=== PATIENT | female | born 1955 | race Caucasian/White ===

== ENCOUNTER → 2016-12-22 | Outpatient (REF) | payer OTHER | LOC: M SMT 13:09 | PROVIDERS: ATTEND Nurse Practitioner Women's Health | DX: Z87.440 Personal history of urinary (tract) infections (principal) ==

== ENCOUNTER → 2017-03-09 | Outpatient (CLI) | payer BC ==
--- NOTE | 2017-03-09 15:14 | REPMRS ---
Patient History The patient states she has not had a clinical breast exam in over a year. Patient is postmenopausal. Family history of colorectal cancer in mother at age 50 or over. Benign stereotactic core biopsy of the left breast, 1993. Digital Woman Screen Mammo: March 09, 2017 - Exam #: [id number] Bilateral CC and MLO view(s) were taken. Technologist: Claire Concepcion, Technologist FINDINGS: There are scattered fibroglandular densities. There has been no change in the appearance of the mammogram from the prior studies. There is a mild amount of residual fibroglandular tissue which is fairly symmetric. There is no interval development of dominant mass, architectural distortion, or clustered microcalcification suggestive of malignancy. ASSESSMENT: BI-RADS/ACR category 1 mammogram. Negative. Recommendation Routine screening mammogram in 1 year (for women over age 40). This mammogram was interpreted with the aid of an FDA-approved computer-aided dectection system. Electronically Signed By: Yusuf Retana MD 03/09/17 [id number]
== END ==
LOC: M WHC 13:46
PROVIDERS: ATTEND Family Medicine
DX: Z12.39 Encounter for other screening for malignant neoplasm of breast (principal)

== ENCOUNTER → 2017-03-10 | Outpatient (REF) | payer BC | LOC: M LAB REF 13:52 | PROVIDERS: ATTEND Obstetrics & Gynecology | DX: Z12.4 Encounter for screening for malignant neoplasm of cervix (principal) ==

== ENCOUNTER → 2017-06-22 | Outpatient (REF) | payer OTHER | LOC: M SMT 13:10 | PROVIDERS: ATTEND Nurse Practitioner Women's Health | DX: R33.9 Retention of urine, unspecified (principal) ==

== ENCOUNTER → 2017-11-16 | Outpatient (REF) | payer OTHER | LOC: M SFHCLERA 09:15 | PROVIDERS: ATTEND Family Medicine | DX: R73.02 Impaired glucose tolerance (oral) (principal) ==

== ENCOUNTER → 2017-11-16 | Outpatient (CLI) | payer BC, OTHER ==
--- NOTE | 2017-11-16 10:29 | REP ---
RIGHT KNEE SERIES: Five views right knee performed. There is no acute fracture or dislocation. There is mild joint space narrowing diffusely with subchondral sclerosis and spurring. I do not see a significant joint effusion. IMPRESSION: Diffuse degenerative changes. No fracture or dislocation. Signed by Yusuf Retana MD 11/16/2017 05:55 P
== END ==
LOC: M LRY 09:51
PROVIDERS: ATTEND Family Medicine
DX: M17.11 Unilateral primary osteoarthritis, right knee (principal)

== ENCOUNTER → 2017-12-08 | Outpatient (REF) | payer OTHER ==
[2017-12-08 13:58] LABS: APPEARANCE, URINE CLEAR (CLEAR); BACTERIA, URINE AUTO NEGATIVE (NEGATIVE); BILIRUBIN, URINE AUTO NEGATIVE (NEGATIVE); BLOOD, URINE BLOOD NEGATIVE (NEGATIVE); COLOR, URINE YELLOW (YELLOW); GLUCOSE, URINE (UA) AUTO NEGATIVE (NEGATIVE); KETONE, URINE AUTO NEGATIVE (NEGATIVE); LEUKOCYTE ESTERASE, URINE AUTO NEGATIVE (NEGATIVE); NITRITE, URINE AUTO NEGATIVE (NEGATIVE); PROTEIN, URINE AUTO NEGATIVE (NEGATIVE); RBC, URINE AUTO 0 /HPF (0-3); SQUAMOUS EPITHELIAL CELL UR AU 0 /HPF (0-6); UROBILINOGEN, URINE AUTO 0.2 mg/dL (0.0-2.0); WBC, URINE AUTO 1 /HPF (0-3)
== END ==
LOC: M SMT 13:40
DX: R33.9 Retention of urine, unspecified (principal)

== ENCOUNTER → 2018-03-16 | Outpatient (CLI) | payer BC | LOC: M WHC 11:17 | DX: Z12.31 Encounter for screening mammogram for malignant neoplasm of breast (principal); Z78.0 Asymptomatic menopausal state ==

== ENCOUNTER 2018-07-22 07:30 | Day surgery (SDC) | payer BC, OTHER ==
[~2018-07-22 07:30] MED LIST: LIDOCAINE 2% INJ 100 MG/5 ML SDV (FOR ANES.) As Ordered; PROPOFOL 200 MG/20 ML VIAL As Ordered
[2018-07-22] MEDS: NS 1,000 ML IV (08:01)
== END 2018-07-22 09:12 | disposition home or self-care (01) ==
LOC: M OPP 07:30
DX: Z12.11 Encounter for screening for malignant neoplasm of colon (principal); Z80.0 Family history of malignant neoplasm of digestive organs; K59.00 Constipation, unspecified; M19.90 Unspecified osteoarthritis, unspecified site; F41.9 Anxiety disorder, unspecified; Z78.0 Asymptomatic menopausal state; R33.9 Retention of urine, unspecified; Z80.42 Family history of malignant neoplasm of prostate; Z79.899 Other long term (current) drug therapy
CPT/HCPCS: G0105

== ENCOUNTER → 2018-12-10 | Outpatient (CLI) | payer BC, OTHER ==
[~2018-12-10] MED LIST changes: +BUSP5TA PO; +CALC1TAB11 PO; -LIDOCAINE 2% INJ 100 MG/5 ML SDV (FOR ANES.) As Ordered; +ONETAB33 PO; -PROPOFOL 200 MG/20 ML VIAL As Ordered
--- NOTE | 2018-12-10 13:38 | REP ---
RENAL ULTRASOUND COMPLETE: 12/10/2018 COMPARISON: 03/31/2016. CLINICAL HISTORY: Incomplete bladder emptying. FINDINGS: The right kidney measures 10.2 x 5.1 x 4.2 cm. It has normal cortical thickness and echogenicity. There is no hydronephrosis or hydroureter. I see no solid mass or cyst. Echogenic focus overlies upper pole jeffrey about 8 x 7 mm and may be a small stone. The left kidney is 11.5 x 6.6 x 4.8 centimeters with normal cortical echogenicity and thickness. There is no hydronephrosis or hydroureter and no stone, cyst or solid mass. Some of its margins are obscured by gas shadowing from unfavorable sonographic window. The bladder volume calculated pre-void measurement of 14.2 x 11.4 x 11.5 cm 969 mL . Postvoid 10.1 x 9.8 x 10.6 cm calculates at 541 mL. This is a 56% residual. In addition there is focal abnormal thickening of the anterior bladder wall that may reflect a mass 3.9 x 2.8 x 1.6 cm. This is new since the previous study in 2016. IMPRESSION: 1. A 3.9 x 2.8 x 1.6 cm irregular thickened anterior bladder wall suggesting a soft tissue mass in that bladder wall. Further evaluation is needed. Malignancy is not excluded. 2. Bladder volume 969 mL pre-void; 541 mL postvoid, a 56% residual. 3. No hydronephrosis, hydroureter or ureteral stones. There is 8 x 7 mm echogenic focus suggesting a stone in a jeffrey of the right kidney without hydronephrosis. No solid or cystic mass. Normal cortical echogenicity and thickness. Electronically Signed by Pio Albarado MD 12/10/2018 04:59 P
== END ==
LOC: M SMT 09:54
PROVIDERS: ATTEND Nurse Practitioner Women's Health
DX: R33.9 Retention of urine, unspecified (principal)

== ENCOUNTER → 2019-01-04 | Outpatient (REF) | payer OTHER ==
[2019-01-04 18:28] LABS: APPEARANCE, URINE HAZY (CLEAR); BACTERIA, URINE AUTO 1+ (NEGATIVE); BILIRUBIN, URINE AUTO NEGATIVE (NEGATIVE); BLOOD, URINE BLOOD NEGATIVE (NEGATIVE); COLOR, URINE YELLOW (YELLOW); GLUCOSE, URINE (UA) AUTO NEGATIVE (NEGATIVE); KETONE, URINE AUTO NEGATIVE (NEGATIVE); LEUKOCYTE ESTERASE, URINE AUTO 3+ (NEGATIVE); MUCUS, URINE SMALL (NEGATIVE); NITRITE, URINE AUTO NEGATIVE (NEGATIVE); PROTEIN, URINE AUTO 1+ mg/dL (NEGATIVE); RBC, URINE AUTO 9 /HPF (0-3); SPECIFIC GRAVITY URINE AUTO 1.011 (1.002-1.035); SQUAMOUS EPITHELIAL CELL UR AU 0 /HPF (0-6); UROBILINOGEN, URINE AUTO 0.2 mg/dL (0.0-2.0); WBC, URINE AUTO 176 /HPF (0-3)
== END ==
LOC: M SMT 17:15
PROVIDERS: ATTEND Urology
DX: D49.4 Neoplasm of unspecified behavior of bladder (principal)

== ENCOUNTER 2019-01-12 07:15 | Observation (INO) | payer BC, OTHER ==
[~2019-01-12] VITALS: Ht 157.5 cm; Wt 82.1 kg
[2019-01-12] VITALS (8 sets, daily range): BP systolic 74–132; BP diastolic 37–74
[~2019-01-12 07:15] MED LIST changes: +LIDOCAINE 1% MDV 20ML VIAL SQ PRN; +LR 1,000 ML IV ONE
[2019-01-12] MEDS ORDERED: ONDANSETRON 4MG/2ML VIAL (J2405) As Ordered ONE (08:06)
[2019-01-12] MEDS ORDERED: dexameTHASONE 4 MG/ML 1ML VIAL (J1100) As Ordered ONE (08:06)
[2019-01-12] MEDS ORDERED: PROPOFOL 200 MG/20 ML VIAL As Ordered ONE (08:06)
[2019-01-12] MEDS ORDERED: LIDOCAINE 2% INJ 100 MG/5 ML SDV (FOR ANES.) As Ordered ONE (08:06)
[2019-01-12] MEDS ORDERED: fentaNYL 100 MCG/2 ML INJECTION (J3010) As Ordered ONE ×3 (08:08→11:03)
[2019-01-12] MEDS ORDERED: MIDAZOLAM INJ 2 MG/2 ML VIAL (J2250) As Ordered ONE (08:08)
[2019-01-12] MEDS ORDERED: LEVO500T3 PO (08:22)
[2019-01-12] MEDS ORDERED: SUGAMMADEX SODIUM 500 MG/5 ML VIAL (BRIDION) As Ordered ONE (09:14)
[2019-01-12] MEDS ORDERED: ROCURONIUM BROMIDE 50 MG/5 ML VIAL As Ordered ONE ×2 (09:16→09:49)
[2019-01-12] MEDS: fentaNYL 100 MCG/2 ML INJECTION (J3010) IV PRN ×4 (11:08→12:00)
[2019-01-12] MEDS ORDERED: PERCOCET 5MG/325MG TAB As Ordered ONE (11:14)
[2019-01-12] MEDS ORDERED: ACETAMINOPHEN TAB 650MG DOSE (2X325MG) PO PRN (11:15)
[2019-01-12] MEDS ORDERED: PERCOCET 5MG/325MG TAB PO PRN (11:30)
[2019-01-12] MEDS: oxyBUTYnin 5 MG TAB PO PRN ×2 (11:37→21:22)
[2019-01-12 11:56] LABS: HEMATOCRIT 33.5 % (36.0-47.0); MEAN CORPUSCULAR HEMOGLOBIN 30.8 pg (27.0-33.0); MEAN CORPUSCULAR HGB CONC 32.8 g/dl (32.0-36.5); MEAN CORPUSCULAR VOLUME 93.8 fl (80.0-96.0); PLATELET COUNT, AUTOMATED 235 10^3/uL (150-450); RED BLOOD COUNT 3.57 10^6/uL (4.00-5.40); WHITE BLOOD COUNT 9.3 10^3/uL (4.0-10.0)
[2019-01-12 12:19] LABS: BLOOD UREA NITROGEN 12 MG/DL (7-18); CALCIUM LEVEL 8.5 MG/DL (8.8-10.2); CARBON DIOXIDE LEVEL 27 MEQ/L (21-32); CHLORIDE LEVEL 103 MEQ/L (98-107); CREATININE FOR GFR 0.71 MG/DL (0.55-1.30); GLOMERULAR FILTRATION RATE > 60.0 (>45); GLUCOSE, FASTING 124 MG/DL (70-100); SODIUM LEVEL 138 MEQ/L (136-145)
[2019-01-12] MEDS ORDERED: NS 1,000 ML IV SCH (16:30)
[2019-01-12] MEDS: DOCUSATE SODIUM 100 MG CAP PO SCH (21:22)
[2019-01-12] MEDS: busPIRone 5 MG TAB PO SCH (21:22)
[2019-01-13] VITALS: BP 116/68
[2019-01-13] MEDS: ONDANSETRON 4MG/2ML VIAL (J2405) IV PRN ×2 (02:38→08:29)
[2019-01-13 04:00] VITALS: BP 106/58
[2019-01-13 06:52] LABS: HEMATOCRIT 28.2 % (36.0-47.0); HEMOGLOBIN 9.5 g/dl (12.0-15.5); MEAN CORPUSCULAR HEMOGLOBIN 31.4 pg (27.0-33.0); MEAN CORPUSCULAR HGB CONC 33.7 g/dl (32.0-36.5); MEAN CORPUSCULAR VOLUME 93.1 fl (80.0-96.0); PLATELET COUNT, AUTOMATED 217 10^3/uL (150-450); RED BLOOD COUNT 3.03 10^6/uL (4.00-5.40); WHITE BLOOD COUNT 13.7 10^3/uL (4.0-10.0)
[2019-01-13] MEDS: LevoFLOXacin 500 MG TABLET PO SCH (07:06)
[2019-01-13 07:20] LABS: CALCIUM LEVEL 8.3 MG/DL (8.8-10.2); CREATININE FOR GFR 1.07 MG/DL (0.55-1.30); POTASSIUM SERUM 4.2 MEQ/L (3.5-5.1)
[2019-01-13 07:30] VITALS: BP 110/57
--- NOTE | 2019-01-13 08:16 | IPNPDOC ---
Assessment/Plan Date Seen The patient was seen on 01/13/19. Patient Summary This is a 63 y/o F POD1 s/p cysto and TURBT, found to have a small (1-2mm) bladder perforation intraop. She currently has minimal abd pain. Her catheter has been draining fine. Her urine is not clear yet. Nursing has milked the catheter tubing a few times o/n to remove clots. Hb this morning is down to 9.5, likely partially due to hemodilution. Cr is up a little to 1. Vitals are stable. Plan/VTE VTE Prophylaxis Ordered?: Yes VTE Exclusion Mechanical Proph: N/A:VTE Prophy Ordered Plan/Urinary Catheter Urinary Catheter: Other Catheter: (catheter will need to stay in for 2 wks for the bladder to heal) Plan - d/c IVF - strict I/Os - oxybutynin prn bladder spasms - encourage PO fluids - SCDs - ambulate - regular diet - potential d/c home later today vs tomorrow w/ the catheter Subjective Review oF Systems Chief Complaint The patient is a 63-year-old female admitted with a reason for visit of Bladder Mass. Events since Last Encounter Patient had bouts of abdominal pain o/n, which seemed to improve w/ oxybutynin. No n/v a this time. No SOB or chest pain. No f/c/ns. Objective Physical Examination General Exam: Alert, Cooperative, No Acute Distress ABDOMEN EXAM: Soft, Tenderness (mild), Other (nondistended) Skin Exam: Nl turgor and temperature Neuro Exam: Normal Speech Psych Exam: Mental status NL, Mood NL Other physical findings catheter in place, draining brownish red urine w/ no clots Vital Signs/I&O Vital Signs Date Time Temp Pulse Resp B/P (MAP) Pulse Ox O2 Delivery O2 Flow Rate FiO2 01/13/19 04:00 98.8 88 18 106/58 (74) 96 01/12/19 12:00 Nasal Cannula 2 I&O- Last 24 Hours up to 6 AM 01/13/19 06:00 Intake Total 2015 ml Output Total 1260 ml Balance 755 ml Laboratory Data Labs 24H Laboratory Tests 2 01/12/19 11:19: Nucleated Red Blood Cells % (auto) 0.0, Anion Gap 8, Glomerular Filtration Rate > 60.0, Blood Urea Nitrogen 12, Creatinine 0.71, Sodium Level 138, Potassium Level 4.0, Chloride Level 103, Carbon Dioxide Level 27, Calcium Level 8.5L 01/13/19 06:24: Nucleated Red Blood Cells % (auto) 0.0, Anion Gap 4L, Glomerular Filtration Rate 55.0, Blood Urea Nitrogen 16, Creatinine 1.07#, Sodium Level 137, Potassium Level 4.2, Chloride Level 103, Carbon Dioxide Level 30, Calcium Level 8.3L CBC/BMP Laboratory Tests 01/12/19 11:19 Red Blood Count 3.57 L, Mean Corpuscular Volume 93.8, Mean Corpuscular Hemoglobin 30.8, Mean Corpuscular Hemoglobin Concent 32.8, Red Cell Distribution Width 12.3, Calcium Level 8.5 L 01/13/19 06:24 Red Blood Count 3.03 L, Mean Corpuscular Volume 93.1, Mean Corpuscular Hemoglobin 31.4, Mean Corpuscular Hemoglobin Concent 33.7, Red Cell Distribution Width 12.6, Calcium Level 8.3 L KELLY MENDOZA MD Jan 13, 2019 08:16
[2019-01-13] MEDS: DOCUSATE SODIUM 100 MG CAP PO SCH ×2 (08:29→21:37)
[2019-01-13] MEDS: busPIRone 5 MG TAB PO SCH ×2 (08:29→21:37)
[2019-01-13 12:00] VITALS: BP 118/68
[2019-01-13 13:35] LABS: HEMATOCRIT 30.3 % (36.0-47.0); HEMOGLOBIN 10.1 g/dl (12.0-15.5); MEAN CORPUSCULAR HEMOGLOBIN 31.2 pg (27.0-33.0); MEAN CORPUSCULAR HGB CONC 33.3 g/dl (32.0-36.5); MEAN CORPUSCULAR VOLUME 93.5 fl (80.0-96.0); PLATELET COUNT, AUTOMATED 237 10^3/uL (150-450); RED BLOOD COUNT 3.24 10^6/uL (4.00-5.40); WHITE BLOOD COUNT 13.2 10^3/uL (4.0-10.0)
[2019-01-13 14:00] LABS: BLOOD UREA NITROGEN 13 MG/DL (7-18); CALCIUM LEVEL 8.9 MG/DL (8.8-10.2); CARBON DIOXIDE LEVEL 29 MEQ/L (21-32); CHLORIDE LEVEL 102 MEQ/L (98-107); CREATININE FOR GFR 0.98 MG/DL (0.55-1.30); GLOMERULAR FILTRATION RATE > 60.0 (>45); GLUCOSE, FASTING 141 MG/DL (70-100); SODIUM LEVEL 138 MEQ/L (136-145)
[2019-01-13 16:00] VITALS: BP 116/63
[2019-01-13 20:00] VITALS: BP 130/70
[2019-01-14] VITALS (9 sets, daily range): BP systolic 106–136; BP diastolic 57–71
[2019-01-14] MEDS: oxyBUTYnin 5 MG TAB PO PRN ×2 (04:36→21:01)
[2019-01-14] MEDS: LevoFLOXacin 500 MG TABLET PO SCH (06:04)
[2019-01-14 06:06] LABS: HEMATOCRIT 27.7 % (36.0-47.0); HEMOGLOBIN 9.2 g/dl (12.0-15.5); MEAN CORPUSCULAR HEMOGLOBIN 31.5 pg (27.0-33.0); MEAN CORPUSCULAR HGB CONC 33.2 g/dl (32.0-36.5); MEAN CORPUSCULAR VOLUME 94.9 fl (80.0-96.0); PLATELET COUNT, AUTOMATED 201 10^3/uL (150-450); RED BLOOD COUNT 2.92 10^6/uL (4.00-5.40); WHITE BLOOD COUNT 9.1 10^3/uL (4.0-10.0)
[2019-01-14 06:40] LABS: BLOOD UREA NITROGEN 12 MG/DL (7-18); CALCIUM LEVEL 8.6 MG/DL (8.8-10.2); CARBON DIOXIDE LEVEL 30 MEQ/L (21-32); CHLORIDE LEVEL 103 MEQ/L (98-107); CREATININE FOR GFR 0.65 MG/DL (0.55-1.30); GLOMERULAR FILTRATION RATE > 60.0 (>45); GLUCOSE, FASTING 112 MG/DL (70-100); POTASSIUM SERUM 3.7 MEQ/L (3.5-5.1); SODIUM LEVEL 140 MEQ/L (136-145)
[2019-01-14] MEDS ORDERED: NS 1,000 ML IV SCH ×2 (08:45)
[2019-01-14] MEDS: DOCUSATE SODIUM 100 MG CAP PO SCH ×2 (09:04→21:00)
[2019-01-14] MEDS: busPIRone 5 MG TAB PO SCH ×2 (09:04→21:00)
--- NOTE | 2019-01-14 14:02 | RO ---
DATE OF PROCEDURE: 01/12/2019 PREPROCEDURE DIAGNOSIS: Bladder tumor. POSTPROCEDURE DIAGNOSIS: Bladder tumor. PROCEDURE: Cystoscopy, transurethral resection of bladder tumor (greater than 5 cm), examination under anesthesia. SURGEON: Dom Lind MD CLINICAL LABORATORY MEDICAL DIRECTOR: None. ANESTHESIA: General. OPERATIVE INDICATIONS: This is a 63-year-old female who on recent office cystoscopy was found to have a very large bladder tumor occupying the anterior and posterior wall. She was brought to the operating room today for the above listed procedure. DESCRIPTION OF PROCEDURE: The patient was brought to the operating room where general anesthesia was induced. Prophylactic antibiotics were infused. She was then placed in the dorsal lithotomy position and prepped and draped in the usual sterile fashion. At this point, a bimanual vaginal examination under anesthesia was performed. It was negative for palpable bladder masses. The bladder was freely mobile. At this point, a resectoscope was inserted through the urethral meatus and advanced into the bladder using the visual obturator. The bladder was then thoroughly examined. Of note, there was a very large tumor occupying the anterior and posterior wall, as well as two to three small satellite tumors adjacent to it. This tumor did appear to be at least 6 to 7 cm in size. At this point, resectoscope was utilized to resect all visible tumors all the way down to the muscle layer. Of note, this took a large amount of time given the size of the tumor. Once satisfied that all the tumor had been resected, the area of resection was cauterized until we had excellent hemostasis. Of note, while doing this, there did appear to be an approximately 2 mm bladder perforation on the posterior wall. The patient's abdomen appeared to be soft and was not accumulated with fluid. All the specimens were removed from the bladder using an [employer] evacuator. Once satisfied all the specimens were removed, an #18 [place] Newton catheter was inserted into the bladder and the balloon was filled with 10 mm of sterile water. The fluid drained clear at the end of the procedure. The catheter was connected to gravity drainage. This marked the conclusion of the procedure. The patient was then taken out of dorsal lithotomy position, awakened from anesthesia and transported to the recovery room in stable condition. Estimated blood loss 10 mL. Complications: Inadvertant small bladder perforation on the posterior wall, approximately 2 mm in size. Specimens: Bladder tumors. PLAN: We will check laboratories in the postanesthesia care unit (PACU). We will keep the patient overnight for observation. If there are any concerns that the patient is not healing well the perforation, we will get imaging and potentially put a drain in. Otherwise, the plan will be to leave the patient's catheter in for 2 weeks to allow the bladder to heal and then get a cystogram prior to removing the catheter. MUNIR
--- NOTE | 2019-01-14 17:03 | IPNPDOC ---
Assessment/Plan Date Seen The patient was seen on 01/14/19. 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 Her catheter clotted off again this morning and was manually irrigated w/ 1.5L of normal saline w/ return of several clots. When examined again at noon, the urine had turned dark brownish red again. I discussed taking her back for clot evacuation and possible fulguration today. She is agreeable w/ this. Plan/VTE VTE Prophylaxis Ordered?: Yes VTE Exclusion Mechanical Proph: N/A:VTE Prophy Ordered Plan/Urinary Catheter Urinary Catheter: Other Catheter: (catheter will need to stay in for 2 wks for the bladder to heal) Plan - catheter to gravity drainage - pathology results as well as treatment recommendations down the line (radical cystectomy w/ neoadjuvant chemotherapy) discussed in detail - plan OR today for cystoscopy, clot evacuation, fulguration - NPO until OR Subjective Review oF Systems Chief Complaint The patient is a 63-year-old female admitted with a reason for visit of Bladder Mass. Events since Last Encounter The patient noted increased suprapubic pain again this morning. The catheter drained o/n, but the urine is dark brownish red again. The patient denies n/v. Denies f/c. Objective Physical Examination General Exam: Alert, Cooperative, No Acute Distress Chest Exam: Clear to auscultation Heart Exam: Positive: Regular Rhythm ABDOMEN EXAM: Soft, Tenderness (mild), Other (nondistended) Skin Exam: Nl turgor and temperature Neuro Exam: Normal Speech Psych Exam: Mental status NL, Mood NL Other physical findings catheter draining dark brownish red urine Vital Signs/I&O Vital Signs Date Time Temp Pulse Resp B/P (MAP) Pulse Ox O2 Delivery O2 Flow Rate FiO2 01/14/19 12:00 98.7 103 19 106/57 (73) 95 01/12/19 12:00 Nasal Cannula 2 I&O- Last 24 Hours up to 6 AM 01/14/19 06:00 Intake Total 520 ml Output Total 1150 ml Balance -630 ml Laboratory Data Labs 24H Laboratory Tests 2 01/14/19 05:41: Nucleated Red Blood Cells % (auto) 0.0, Anion Gap 7L, Glomerular Filtration Rate > 60.0, Blood Urea Nitrogen 12, Creatinine 0.65, Sodium Level 140, Potassium Level 3.7, Chloride Level 103, Carbon Dioxide Level 30, Calcium Level 8.6L CBC/BMP Laboratory Tests 01/14/19 05:41 Red Blood Count 2.92 L, Mean Corpuscular Volume 94.9, Mean Corpuscular Hemoglobin 31.5, Mean Corpuscular Hemoglobin Concent 33.2, Red Cell Distribution Width 12.9, Calcium Level 8.6 L KELLY MENDOZA MD Jan 14, 2019 17:03
[2019-01-14] MEDS ORDERED: ceFAZolin 2 GM/D5W 50 ML IV BAG (J0690 PER 500MG) As Ordered ONE (17:41)
[2019-01-14] MEDS ORDERED: ONDANSETRON 4MG/2ML VIAL (J2405) As Ordered ONE (18:14)
[2019-01-14] MEDS ORDERED: LIDOCAINE 2% INJ 100 MG/5 ML SDV (FOR ANES.) As Ordered ONE (18:14)
[2019-01-14] MEDS ORDERED: PROPOFOL 200 MG/20 ML VIAL As Ordered ONE (18:14)
[2019-01-14] MEDS ORDERED: dexameTHASONE 4 MG/ML 1ML VIAL (J1100) As Ordered ONE (18:14)
[2019-01-14] MEDS ORDERED: MIDAZOLAM INJ 2 MG/2 ML VIAL (J2250) As Ordered ONE (18:14)
[2019-01-14] MEDS ORDERED: fentaNYL 100 MCG/2 ML INJECTION (J3010) As Ordered ONE ×3 (18:14→19:29)
[2019-01-14] MEDS ORDERED: PHENYLephrine HCL 500 MCG/5 ML (100MCG/ML) SYRINGE (J2370) As Ordered ONE (18:44)
[2019-01-14] MEDS ORDERED: NEOSTIGMINE 10 MG/10 ML VIAL (J2710) As Ordered ONE (19:01)
[2019-01-14] MEDS ORDERED: GLYCOPYRROLATE INJ 0.2 MG/ML 2 ML VIAL As Ordered ONE (19:01)
[2019-01-14] MEDS: fentaNYL 100 MCG/2 ML INJECTION (J3010) IV PRN ×4 (19:30→19:46)
[2019-01-14] MEDS ORDERED: ONDANSETRON 4MG/2ML VIAL (J2405) IV PRN (19:30)
[2019-01-14] MEDS ORDERED: LR 1,000 ML IV SCH (19:30)
[2019-01-14] MEDS ORDERED: MEPERIDINE INJ 25 MG/ML VIAL (J2175) IV PRN (19:30)
[2019-01-14] MEDS ORDERED: METOCLOPRAMIDE INJ 10MG/2ML VIAL (J2765) IV PRN (19:30)
[2019-01-14] MEDS ORDERED: PERCOCET 5MG/325MG TAB PO PRN (19:30)
[2019-01-14 19:43] LABS: HEMATOCRIT 26.4 % (36.0-47.0); HEMOGLOBIN 8.6 g/dl (12.0-15.5); MEAN CORPUSCULAR HEMOGLOBIN 31.9 pg (27.0-33.0); MEAN CORPUSCULAR HGB CONC 32.6 g/dl (32.0-36.5); MEAN CORPUSCULAR VOLUME 97.8 fl (80.0-96.0); PLATELET COUNT, AUTOMATED 186 10^3/uL (150-450); WHITE BLOOD COUNT 8.9 10^3/uL (4.0-10.0)
[2019-01-14 20:09] LABS: BLOOD UREA NITROGEN 14 MG/DL (7-18); CARBON DIOXIDE LEVEL 28 MEQ/L (21-32); CHLORIDE LEVEL 106 MEQ/L (98-107); CREATININE FOR GFR 0.63 MG/DL (0.55-1.30); GLOMERULAR FILTRATION RATE > 60.0 (>45); GLUCOSE, FASTING 107 MG/DL (70-100); POTASSIUM SERUM 3.5 MEQ/L (3.5-5.1); SODIUM LEVEL 143 MEQ/L (136-145)
[2019-01-15 00:20] VITALS: BP 114/56
[2019-01-15 04:00] VITALS: BP 124/61
[2019-01-15] MEDS: LevoFLOXacin 500 MG TABLET PO SCH (05:12)
[2019-01-15 07:03] LABS: HEMATOCRIT 24.9 % (36.0-47.0); HEMOGLOBIN 8.2 g/dl (12.0-15.5); MEAN CORPUSCULAR HEMOGLOBIN 32.2 pg (27.0-33.0); MEAN CORPUSCULAR HGB CONC 32.9 g/dl (32.0-36.5); MEAN CORPUSCULAR VOLUME 97.6 fl (80.0-96.0); PLATELET COUNT, AUTOMATED 174 10^3/uL (150-450); RED BLOOD COUNT 2.55 10^6/uL (4.00-5.40)
[2019-01-15 07:25] LABS: BLOOD UREA NITROGEN 12 MG/DL (7-18); CALCIUM LEVEL 7.8 MG/DL (8.8-10.2); CARBON DIOXIDE LEVEL 30 MEQ/L (21-32); CHLORIDE LEVEL 103 MEQ/L (98-107); CREATININE FOR GFR 0.49 MG/DL (0.55-1.30); GLOMERULAR FILTRATION RATE > 60.0 (>45); GLUCOSE, FASTING 83 MG/DL (70-100); POTASSIUM SERUM 3.7 MEQ/L (3.5-5.1); SODIUM LEVEL 139 MEQ/L (136-145)
[2019-01-15 08:00] VITALS: BP 115/59
[2019-01-15] MEDS: busPIRone 5 MG TAB PO SCH (10:19)
[2019-01-15] MEDS: DOCUSATE SODIUM 100 MG CAP PO SCH (10:22)
[2019-01-15 12:00] VITALS: BP 136/69
--- NOTE | 2019-01-17 16:42 | RO ---
DATE OF PROCEDURE: 01/14/2019 PREPROCEDURE DIAGNOSIS: Gross hematuria, urinary retention. POSTPROCEDURE DIAGNOSIS: Gross hematuria, urinary retention. PROCEDURE: Cystoscopy, clot evacuation, fulguration of bleeding. SURGEON: Dr. Dom Lind UNIVERSITY SERVICES PROGRAM ASSOCIATE: None. ANESTHESIA: General. OPERATIVE INDICATIONS: This 63-year-old female was brought to the operating room 2 days ago for cystoscopy and transurethral resection of bladder tumor. Her catheter continued to clot off while being observed on the regular nursing floor, and due to this, it was recommended she be brought to the operating room today for the above listed procedure. DESCRIPTION OF PROCEDURE: The patient was brought to the operating room and general anesthesia was induced. Prophylactic antibiotics were infused. She was then placed in the dorsal lithotomy position and prepped and draped in the usual sterile fashion. At this point, a resectoscope was inserted into the urethral meatus and advanced to the bladder. Of note, there were several large clots within the bladder, mostly adherent to the previous area of resection. An [email or web address] evacuator was utilized to evacuate all the clots. Once this was done, there were a few small areas of some venous bleeding along the previous area of resection. These were all cauterized using the button electrode. Once satisfied with hemostasis and satisfied that all the clots had been removed, the resectoscope was taken out and a 22-Wolof Newton catheter was inserted into the bladder. The balloon was filled with 10 mL of sterile water and fluid drained light pink at the end of the procedure. The catheter was connected to gravity drainage, and the patient was taken out of the dorsal lithotomy position, awakened from anesthesia, and transported to the recovery room in stable condition. Estimated blood loss: 10 mL. Complications: None. Specimens: None. PLAN: The patient was taken back up to the regular nursing floor. If her urine drains light pink or clear and the catheter continues to drain, she will be discharged home tomorrow.
--- NOTE | 2019-01-19 10:30 | DSES ---
DATE OF ADMISSION: 01/12/2019 DATE OF DISCHARGE: 01/15/2019 ADMISSION DIAGNOSES: Bladder tumor. DISCHARGE DIAGNOSIS: Bladder cancer. ADMITTING PHYSICIAN: oDm Lind MD DISCHARGING PHYSICIAN: Rupa Daley MD PROCEDURE PERFORMED: Cystoscopy with transurethral resection of bladder on 01/12/2019, cystoscopy with clot evacuation and fulguration on 01/14/2019. HISTORY OF PRESENT ILLNESS: This 63-year-old female was found to have a large bladder tumor on office cystoscopy . She was brought to the operating room on 01/12/2019 for the above listed procedure and was admitted postoperatively as she did have a small inadvertant bladder perforation during her procedure. HOSPITALIZATION COURSE: The patient was admitted to the hospital after undergoing the cystoscopy with transurethral resection of bladder tumor on 01/12/2019 for monitoring as she did have a small inadvertant bladder perforation. During her hospital stay, she had moderate amounts of hematuria and her catheter kept clotting off. This required manual irrigation by myself several times. Her vital signs were stable, but her hemoglobin did drift down a little bit, but not to the level where she required a blood transfusion. By 01/14/2019 the decision was made to take her back to the operating room to remove any clots from her bladder and to fulgurate any active bleeding. She was therefore taken to the operating room that evening and a large amount of clots were removed. After that point, on the next day, her catheter was draining clear and was not clotting off anymore. Her vital signs remained stable. Her hemoglobin did drift down to 8.2, but as she was not symptomatic and her vital signs were stable, decision was made not to give her a blood transfusion. She was ready for discharge on 01/15/2019. She was discharged home with her catheter in place with the plan for her to followup in the clinic in approximately 2 weeks for catheter removal. We will get a cystogram prior to removing the catheter to ensure that her bladder has healed.
== END 2019-01-15 14:00 | disposition home or self-care (01) ==
LOC: M SDC 07:15 → M PED 07:15 → EDSTATUS 08:30 → M SDC 12:15 → M PED 12:15 → M SDC 01-13 13:01 → M PED 01-15 14:00
PROVIDERS: ADMIT Urology; ATTEND Urology
DX: C67.3 Malignant neoplasm of anterior wall of bladder (principal); C67.4 Malignant neoplasm of posterior wall of bladder; F41.9 Anxiety disorder, unspecified; K59.00 Constipation, unspecified; Z79.899 Other long term (current) drug therapy; N99.71 Accidental puncture and laceration of a genitourinary system organ or structure during a genitourinary system procedure
CPT/HCPCS: 36415; 52001; 52214; 52240; 80048; 85027; 88307; 96374; 96376; J0690; J1100; J2250; J2370; J2405; J2710; J3010

== ENCOUNTER → 2019-01-24 | Outpatient (CLI) | payer BC, OTHER ==
[~2019-01-24] MED LIST changes: +CYSTO-CONRAY II 17.2% 250ML VIAL (Q9958) As Ordered ONE; +LEVO500T3 PO; -LIDOCAINE 1% MDV 20ML VIAL SQ PRN; -LR 1,000 ML IV ONE
--- NOTE | 2019-01-24 17:15 | REP ---
Cystogram: 10 views. History: History of removal of bladder tumor on January 12. Evaluate for bladder rupture. Findings: Preliminary filter changing technician radiograph is unremarkable except for the Newton catheter. The total of 100 ml of Cysto-Conray was infused by gravity into the urinary bladder. Multiple AP, oblique and lateral views were obtained. These show no evidence of extravasation. There is some irregularity anteriorly in the bladder wall on lateral view. There is no evidence of reflux. Impression: No evidence of bladder rupture. No filling defect seen. A Newton catheter in place. Fluoroscopy time is less than 0.1 minutes. Electronically Signed by Marco Antonio Pitts MD 01/24/2019 05:47 P
== END ==
LOC: M RADPRO 14:15
PROVIDERS: ATTEND Urology
DX: N32.89 Other specified disorders of bladder (principal)
CPT/HCPCS: 51600; 74430; Q9958

== ENCOUNTER → 2019-01-25 | Outpatient (CLI) | payer BC, OTHER ==
[~2019-01-25] MED LIST changes: -CYSTO-CONRAY II 17.2% 250ML VIAL (Q9958) As Ordered ONE
[2019-01-25 13:11] LABS: HEMATOCRIT 30.5 % (36.0-47.0); HEMOGLOBIN 9.8 g/dl (12.0-15.5); MEAN CORPUSCULAR HEMOGLOBIN 31.4 pg (27.0-33.0); MEAN CORPUSCULAR HGB CONC 32.1 g/dl (32.0-36.5); MEAN CORPUSCULAR VOLUME 97.8 fl (80.0-96.0); PLATELET COUNT, AUTOMATED 326 10^3/uL (150-450); RED BLOOD COUNT 3.12 10^6/uL (4.00-5.40); WHITE BLOOD COUNT 8.8 10^3/uL (4.0-10.0)
[2019-01-25 13:38] LABS: BLOOD UREA NITROGEN 13 MG/DL (7-18); CALCIUM LEVEL 8.9 MG/DL (8.8-10.2); CARBON DIOXIDE LEVEL 29 MEQ/L (21-32); CHLORIDE LEVEL 102 MEQ/L (98-107); CREATININE FOR GFR 0.64 MG/DL (0.55-1.30); GLOMERULAR FILTRATION RATE > 60.0 (>45); GLUCOSE, FASTING 93 MG/DL (70-100); POTASSIUM SERUM 3.8 MEQ/L (3.5-5.1); SODIUM LEVEL 139 MEQ/L (136-145)
== END ==
LOC: M LAB 12:34
PROVIDERS: ATTEND Urology
DX: C67.9 Malignant neoplasm of bladder, unspecified (principal)

== ENCOUNTER → 2019-01-28 | Outpatient (CLI) | payer MEDICARE, BC, OTHER ==
[~2019-01-28] MED LIST changes: +ISOVUE-370 76% 100ML VIAL (Q9967) As Ordered ONE
--- NOTE | 2019-01-28 21:29 | REP ---
Clinical: Bladder cancer. Technique: Axial precontrast, contrast enhanced, and delayed images of the abdomen and pelvis using 100 ml Isovue 370 intravenous contrast material with coronal and sagittal re-formations. Comparison: None. Findings: Evaluation of the kidneys demonstrates 5 mm nonobstructing right intrarenal calculus. No perinephric stranding, hydroureternephrosis, cystic or mass lesion appreciated involving the kidneys or ureters. The bladder demonstrates small amount of intraluminal gas likely related to prior Newton catheterization or procedure. No significant bladder wall thickening or bladder mass lesion is identified. Further evaluation the pelvis demonstrates normal uterus / adnexa and small amount of pelvic free fluid. Liver, spleen, pancreas, and bilateral adrenal glands are normal. The patient is status post cholecystectomy with mild compensatory biliary ductal dilatation noted. The enteric system is grossly unremarkable and without obstruction or definite acute process. Abdominal aorta and vasculature without aneurysm or dissection. No free air. No significant intraperitoneal or retroperitoneal adenopathy identified. Musculoskeletal structures demonstrate degenerative changes without focal osseous abnormality. Lung bases demonstrate mild left basilar acute versus chronic fibroatelectatic change. Impression: 1. Evaluation of the urinary tract system demonstrates 5 mm nonobstructing right renal calculus. Small amount of gas noted in the bladder likely related to prior procedure. No further obvious urinary tract pathology identified. 2. Small amount of free fluid in the posterior cul-de-sac nonspecific. 3. No obvious adenopathy. Electronically Signed by Sean Lazar MD 01/28/2019 09:21 P
== END ==
LOC: M RAD 16:29
PROVIDERS: ATTEND Urology
DX: N20.0 Calculus of kidney (principal)
CPT/HCPCS: 74178; Q9967

== ENCOUNTER → 2019-02-11 | Outpatient (CLI) | payer MEDICARE, BC, OTHER ==
[~2019-02-11] MED LIST changes: +DECA4TAB PO; -ISOVUE-370 76% 100ML VIAL (Q9967) As Ordered ONE; +ONDA8TAB7 PO; +PROC10TA4 PO; +ZYPR10TA PO
--- NOTE | 2019-02-11 18:40 | ECHO ---
DATE OF PROCEDURE: 02/11/2019 DATE OF : 1955 AGE: 63 REFERRING PROVIDER: Dr. Zandra Ye PATIENT LOCATION: Outpatient. REASON FOR THE ECHOCARDIOGRAM: Bladder cancer, chemotherapy drug monitoring. 2D MEASUREMENTS: IVS: 0.8 LV: 5.3 LVPW: 0.8 LA: 3.2 Aorta: 2.8 DOPPLER MEASUREMENTS: Peak velocity across the aortic valve: 1.4 m/s Peak velocity across the LVOT: 0.91 m/s Mitral E: 0.61, Mitral A: 0.64 with a ratio of 0.9 2D COMMENTS: 1. Normal left ventricular size, wall thickness and global left ventricular systolic function. The basal anterior septum appeared to be mildly hypokinetic. The estimated global left ventricular systolic ejection fraction is 55-60%. 2. Normal left atrium. Normal right atrium and right ventricle. 3. The atrial septum appeared to be normal without evidence of defect or shunt. 4. Normal aortic root. 5. No pericardial effusion seen. 6. Minimally calcified aortic valve with normal leaflet excursion. Normal mitral valve, tricuspid valve, and pulmonic valve. The proximal pulmonary artery branches also appeared to be normal. The inferior vena cava was normal in size, 1.2 cm. Central venous pressure is most likely normal. DOPPLER: It detects trace mitral regurgitation, trace aortic regurgitation, and trace tricuspid regurgitation. The velocity across the tricuspid valve was normal. IMPRESSION: 1. Low normal global left ventricular systolic function with regional wall motion abnormalities involving the basal anterior septum. 2. Not mentioned above, there were features of left ventricular diastolic dysfunction manifested by abnormal relaxation. 3. Aortic valve sclerosis with trace aortic regurgitation. 4. Trace mitral regurgitation. 5. Trace tricuspid regurgitation.
== END ==
LOC: M CARPUL 11:15
PROVIDERS: ATTEND Internal Medicine Medical Oncology
DX: C67.9 Malignant neoplasm of bladder, unspecified (principal); I08.0 Rheumatic disorders of both mitral and aortic valves

== ENCOUNTER → 2019-02-15 | Outpatient (CLI) | payer MEDICARE, BC, OTHER ==
[~2019-02-15] MED LIST changes: +ISOVUE-370 76% 125ML VIAL (Q9967 PER ML) As Ordered ONE
--- NOTE | 2019-02-15 13:44 | REP ---
Chest CT with IV contrast: History: High grade muscle invasive bladder carcinoma. No comparison chest CT. CT contrast dose: 75 mL of intravenous Isovue 370. CT findings: Preliminary digital associate professor of sociology radiograph is unremarkable. There are clips in right upper quadrant of the abdomen. Axial CT images demonstrate linear discoid atelectasis versus fibrosis in the lingula and left lower lobe. No pleural effusion or pericardial effusion is seen. No hilar or mediastinal mass or adenopathy is observed. There is some vascular calcification in the mediastinum. No axillary mass or adenopathy is seen. No adrenal lesion is observed on either side. Lung window settings show no evidence of infiltrate or pulmonary mass lesion. There is a granulomatous calcification in the right upper lobe on page 35 of 109 in series 201. No significant pulmonary nodule is appreciated. Bone window settings show no bony destructive lesion. Impression: Linear fibrosis versus discoid atelectasis in the left lower lobe and lingula. Vascular calcification. Old granuloma right upper lobe. Otherwise no acute disease. Electronically Signed by Marco Antonio Pitts MD 02/15/2019 07:49 P
== END ==
LOC: M RAD 07:55
PROVIDERS: ATTEND Internal Medicine Medical Oncology
DX: C67.9 Malignant neoplasm of bladder, unspecified (principal); R91.8 Other nonspecific abnormal finding of lung field
CPT/HCPCS: 71260; Q9967

== ENCOUNTER → 2019-02-17 | Outpatient (CLI) | payer MEDICARE, BC, OTHER ==
[~2019-02-17] MED LIST changes: -ISOVUE-370 76% 125ML VIAL (Q9967 PER ML) As Ordered ONE; +LIDOCAINE 2% MDV 20 ML VIAL As Ordered ONE; +MIDAZOLAM INJ 2 MG/2 ML VIAL (J2250) As Ordered ONE; +OLAN10TA2 PO; +PEG6SYR SC; +ceFAZolin 1GM INJ (J0690 PER 500MG) As Ordered ONE; +fentaNYL 100 MCG/2 ML INJECTION (J3010) As Ordered ONE
--- NOTE | 2019-03-02 12:35 | REPIR ---
DATE OF PROCEDURE: 02/17/2019 ATTENDING SURGEON: Alverto Woods MD ASSISTANTS: Seble Lopez and Valery Orellana PREOPERATIVE DIAGNOSIS: Bladder cancer. POSTOPERATIVE DIAGNOSIS: Bladder cancer. PROCEDURE: Ultrasound-guided right internal jugular vein cannulation, fluoroscopic-guided right internal jugular vein, 23-cm tunneled central venous catheter with subcutaneous port placement. INDICATION: The patient is a 63-year-old female who requires placement of a Port-A-Cath for chemotherapy instillation. Risks, benefits, and alternative treatment options were discussed with the patient. ANESTHESIA: Local with 20 mL of 2% lidocaine. FLUORO TIME: 0.1 minutes. CONTRAST: None. COMPLICATIONS: None. DRAINS: None. SPECIMENS: None. IMPLANTS: Right internal jugular vein tunneled central venous catheter with subcutaneous port using a [employer] PowerPort and [id number] catheter. DESCRIPTION OF PROCEDURE: The patient was taken the angiography suite, placed supine on the angiography room table, and then prepped and draped in a standard surgical fashion. The right internal jugular vein was cannulated using ultrasound guidance. The catheter was advanced through the introducer sheath, which was positioned attached to the port, which had been tunneled in a pocket created in the right chest. The port was aspirated, noted to aspirate easily, and then flushed with heparinized saline. The incisions were then closed using 3-0 Monocryl in inverted interrupted fashion. Final fluoroscopic image showed the catheter and port to be in good position and good alignment with no pneumo- or hemothorax noted. The catheter and port are stable for use for access.
== END | disposition home or self-care (01) ==
LOC: M IRPRO 11:10
PROVIDERS: ATTEND Internal Medicine Medical Oncology
DX: C67.9 Malignant neoplasm of bladder, unspecified (principal)
CPT/HCPCS: 36561; 77001; C1788; C1894; J0690

== ENCOUNTER 2019-03-14 17:44 | Inpatient (IN) | payer MEDICARE, BC, OTHER ==
[~2019-03-14] VITALS: Ht 157.5 cm; Wt 81.6 kg
[~2019-03-14 17:44] MED LIST changes: -LIDOCAINE 2% MDV 20 ML VIAL As Ordered ONE; -MIDAZOLAM INJ 2 MG/2 ML VIAL (J2250) As Ordered ONE; -OLAN10TA2 PO; -PEG6SYR SC; -ceFAZolin 1GM INJ (J0690 PER 500MG) As Ordered ONE; -fentaNYL 100 MCG/2 ML INJECTION (J3010) As Ordered ONE
[2019-03-14] MEDS ORDERED: KETOROLAC 30 MG/ML VIAL (J1885) IV ONE (19:00)
[2019-03-14] MEDS: NS 1,000 ML IV SCH (19:39)
[2019-03-14 19:53] LABS: HEMATOCRIT 29.2 % (36.0-47.0); HEMOGLOBIN 9.6 g/dl (12.0-15.5); MEAN CORPUSCULAR HEMOGLOBIN 30.7 pg (27.0-33.0); MEAN CORPUSCULAR HGB CONC 32.9 g/dl (32.0-36.5); MEAN CORPUSCULAR VOLUME 93.3 fl (80.0-96.0); PLATELET COUNT, AUTOMATED 168 10^3/uL (150-450); RED BLOOD COUNT 3.13 10^6/uL (4.00-5.40); WHITE BLOOD COUNT 28.8 10^3/uL (4.0-10.0)
[2019-03-14 20:16] LABS: LYMPHOCYTES 10 % (16-52); NEUTROPHILS 89 % (35-75)
[2019-03-14 20:18] LABS: DOHLE BODIES 1+
[2019-03-14 20:19] LABS: ALBUMIN 3.2 GM/DL (3.2-5.2); ALT/SGPT 13 U/L (12-78); BILIRUBIN,DIRECT < 0.1 MG/DL (0.0-0.2); BILIRUBIN,TOTAL 0.4 MG/DL (0.2-1.0); BLOOD UREA NITROGEN 33 MG/DL (7-18); CALCIUM LEVEL 8.5 MG/DL (8.8-10.2); CARBON DIOXIDE LEVEL 29 MEQ/L (21-32); CHLORIDE LEVEL 102 MEQ/L (98-107); CREATININE FOR GFR 1.72 MG/DL (0.55-1.30); GLOMERULAR FILTRATION RATE 31.7 (>45); GLUCOSE, FASTING 93 MG/DL (70-100); HYPERSEGMENTED POLYS 1+; LIPASE 649 U/L (73-393); POTASSIUM SERUM 3.9 MEQ/L (3.5-5.1); SODIUM LEVEL 138 MEQ/L (136-145); TOTAL PROTEIN 5.8 GM/DL (6.4-8.2)
[2019-03-14 20:21] LABS: PLATELET ESTIMATE DECREASED (NORMAL)
[2019-03-14] MEDS ORDERED: NS 1,000 ML IV ONE (21:00)
[2019-03-14] MEDS ORDERED: LIDOCAINE 2% 5ML JELLY UROJET TOP ONE (21:00)
[2019-03-14] MEDS ORDERED: OLAN10TA2 PO (22:19)
[2019-03-14] MEDS ORDERED: DECA4TAB PO (22:19)
[2019-03-14] MEDS ORDERED: PROC10TA4 PO (22:19)
[2019-03-14] MEDS: GASTROGRAFIN SOLUTION 30ML PO SCH ×2 (22:19→22:45)
[2019-03-14] MEDS ORDERED: ONDA8TAB7 PO (22:20)
[2019-03-14] MEDS ORDERED: PEG6SYR SC (22:22)
[2019-03-14] MEDS ORDERED: MAALOX 30 ML SUSP *UDC PO PRN (23:30)
[2019-03-14] MEDS ORDERED: MOM 30ML SUSPENSION UDC PO PRN (23:30)
[2019-03-15] MEDS ORDERED: cefTRIAXone SOD 1 GM in D5W MINI-BAG PLUS 50 ML IV SCH ×2
--- NOTE | 2019-03-15 00:10 | REPVR ---
EXAM: CT Abdomen and Pelvis Without Contrast EXAM DATE/TIME: 03/14/2019 9:39 PM CLINICAL HISTORY: 64 years old, female; Pain; Abdominal pain; Generalized; Patient HX: HX bladder tumor. Undergoing chemo. ; Additional info: Patel aparicio TECHNIQUE: Imaging protocol: Axial computed tomography images of the abdomen and pelvis without contrast. Coronal and sagittal reformatted images were created and reviewed. Radiation optimization: All CT scans at this facility use at least one of these dose optimization techniques: automated exposure control; mA and/or kV adjustment per patient size (includes targeted exams where dose is matched to clinical indication); or iterative reconstruction. COMPARISON: CT ABD PELVIS W/O FOL BY WIT 01/28/2019 4:50 PM FINDINGS: Lower thorax: No acute findings. ABDOMEN: Liver: Normal. No mass. Gallbladder and bile ducts: Status post cholecystectomy. Pancreas: Normal. No ductal dilation. Spleen: Normal. No splenomegaly. Adrenals: Normal. No mass. Kidneys and ureters: Nonobstructing right renal calculus measuring 6 mm. Stomach and bowel: Mobile cecum. Slight colonic wall thickening. Appendix: There are no changes of appendicitis. A normal appendix is not seen. PELVIS: Bladder: There is a Newton catheter in the bladder. Reproductive: Unremarkable as visualized. ABDOMEN and PELVIS: Intraperitoneal space: Mild peritoneal ascites with a Hounsfield measurement of 9 in the pelvis. Bones/joints: Mild degenerative change of the lumbar spine, primarily facet arthropathy with moderate right neural foraminal stenosis at L4-L5. Soft tissues: Unremarkable. Vasculature: Normal. No abdominal aortic aneurysm. Lymph nodes: Normal. No enlarged lymph nodes. Other findings: Contracted prepyloric antrum. There is question of some fold thickening. Antral gastritis is not excluded. IMPRESSION: 1. Mild peritoneal ascites which is increased since 01/28/2019. 2. Newton catheter in the bladder which is new since the prior study. 3. Status post cholecystectomy. 4. Contracted prepyloric gastric antrum with some fold thickening. Antral gastritis is not excluded. 5. Slight colonic wall thickening suggesting minimal nonspecific pancolitis, increased since the prior study. 6. Nonobstructing right renal calculus which is similar. Electronically signed by: Mono Lai On 03/15/2019 00:09:45 AM
[2019-03-15] MEDS ORDERED: ONDANSETRON 4MG/2ML VIAL (J2405) IV PRN (00:30)
[2019-03-15 00:45] VITALS: BP 132/73
--- NOTE | 2019-03-15 01:04 | HPEPDOC ---
General Date of Admission Mar 14, 2019 at 23:30 Chief Complaint The patient is a 64-year-old female admitted with a reason for visit of Joyce,Moiz cocytosis. 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 Patient had last passed urine early in the morning and then had not Voided the whole day. Patient last had chemotherapy on 03/09 and 03/10 and after that had 4 days of oral dexamethasone which finished yesterday. Patient also had Neulasta on 03/10/19. In the ED patient was noted to have a WBC of 28K , Creatinine of 1.7, lipase of 687. Patient also had an acute urinary retention which required Newton placement which yielded 500 cc on initial insertion. An abdominal ZXray showed moderate stool burden and patient did admit to be often constipated. At CT abdomen / pelvis showed Mild peritoneal ascites which is increased since 01/28/2019. Contracted prepyloric gastric antrum with some fold thickening. Antral gastritis is not excluded. Slight colonic wall thickening suggesting minimal nonspecific pancolitis, increased since the prior study. Patein is being admitted for JOYCE, acute urinary retention, Leucocytosis and possibly gastritis/duodenitis and possible colitis. Home Medications Scheduled Buspirone HCl (Buspirone HCl) 5 Mg Tab, 5 MG PO BID, (Reported) Dexamethasone (Decadron) 4 Mg Tablet, 4 MG PO 4XWK, (Reported) THURSDAYS, THURSDAY, THURSDAY AND THURSDAY Multivit-Minerals/Folic/Ginkgo (One Daily For Women 50+ Adv Tb) 1 Tab Tab, 1 TAB PO DAILY, (Reported) Pegfilgastrim (Neulasta) 6 Mg/0.6 Ml Syringe, 6 MG SC Q2WK, (Reported) THURSDAYS Scheduled PRN Olanzapine (Olanzapine) 10 Mg Tablet, 10 MG PO DAILY PRN for NAUSEA OR VOMITING, (Reported) Ondansetron HCl (Ondansetron HCl) 8 Mg Tablet, 8 MG PO Q6H PRN for NAUSEA OR VOMITING, (Reported) Prochlorperazine Maleate (Prochlorperazine Maleate) 10 Mg Tablet, 10 MG PO Q8H PRN for NAUSEA OR VOMITING, (Reported) Allergies Coded Allergies: No Known Allergies (Unverified , 01/06/19) Past Medical History Medical History Muscle invasive high-grade urothelial carcinoma of bladder with 4 cm anterior bl adder wall mass on chemotherapy, Arthritis, Diverticulosis, anxiety Surgical History Cystoscopy / TURBT December 2018, cholecystectomy. Social History * Smoker: non-smoker Alcohol: Denies Drugs: denies Review of Systems Constitutional: Denies: Chills, Fever, Night Sweats Eyes: Denies: Pain, Vision change ENT: Denies: Head Aches, Ear Pain, Dysphagia Skin: Denies: Rash, Lesions, Breakdown Pulmonary: Denies: Dyspnea, Cough Cardiovascular: Denies: Chest Pain, Palpitations, Orthopnea, Paroxysmal Noc. Dyspnea, Lt Headedness Gastrointestinal: Reports: Nausea, Abdominal Pain, Constipation Genitourinary: Reports: Retention Hematologic: Denies: Bruising, Bleeding Excessively Musculoskeletal: Denies: Neck Pain, Back Pain, Joint Pain, Muscle Pain, Spasms Physical Examination General Exam: Positive: Alert, Cooperative, No Acute Distress Eye Exam: Positive: PERRLA, Conjunctiva & lids normal, EOMI; Negative: Sclera icteric ENT Exam: Positive: Atraumatic, Mucous membr. moist/pink, Pharynx Normal Neck Exam: Positive: Supple; Negative: JVD, thyromegaly Chest Exam: Positive: Clear to auscultation, Normal air movement Heart Exam: Positive: Rate Normal, Regular Rhythm, Normal S1, Normal S2; Negative: Murmurs, Rubs Abdomen Exam: Positive: Normal bowel sounds, Soft, Tenderness (in jyoti epigastrium), Other (No guarding or rigidity or rebound tenderness. ) Extremity Exam: Negative: Clubbing, Cyanosis, Edema Skin Exam: Positive: Nl turgor and temperature; Negative: Breakdown, Lesion Neuro Exam: Positive: Normal Speech, Strength at 5/5 X4 ext, Normal Tone, Sensation Intact Psych Exam: Positive: Mood NL, Memory Intact Vital Signs Vital Signs Date Time Temp Pulse Resp B/P (MAP) Pulse Ox O2 Delivery O2 Flow Rate FiO2 03/14/19 23:45 92 18 123/69 (87) 94 Room Air 4/15/19 21:19 98.6 Laboratory Data Labs 24H Laboratory Tests 2 03/14/19 18:51: Urine Color YELLOW, Urine Appearance CLEAR, Urine pH 5.0, Urine Specific [place] 1.018, Urine Protein NEGATIVE, Urine Glucose (UA) NEGATIVE, Urine Ketones NEGATIVE, Urine Blood 1+H, Urine Nitrite NEGATIVE, Urine Bilirubin NEGATIVE, Urine Urobilinogen 0.2, Urine Leukocyte Esterase NEGATIVE, Urine WBC (Auto) 5H, Urine RBC (Auto) 4H, Urine Hyaline Casts (Auto) 0, Urine Bacteria (Auto) NEGATIVE, Urine Squamous Epithelial Cells 0, Urine Mucus (Auto) SMALL, Urine Sperm (Auto) 03/14/19 19:37: Immature Granulocyte % (Auto) , Nucleated Red Blood Cells % (auto) 0.0, Neutrophils 89H, Band Neutrophils 1, Lymphocytes (Manual) 10L, Hypersegmented Polys 1+, Dohle Bodies 1+, Platelet Estimate DECREASED, Anion Gap 7L, Glomerular Filtration Rate 31.7L, Calcium Level 8.5L, Aspartate Amino Transf (AST/SGOT) 17, Alanine Aminotransferase (ALT/SGPT) 13, Alkaline Phosphatase 150H, Total Bilirubin 0.4, Direct Bilirubin < 0.1, Total Protein 5.8L, Albumin 3.2, Albumin/Globulin Ratio 1.23, Lipase 649H CBC/BMP Laboratory Tests 03/14/19 19:37 Red Blood Count 3.13 L, Mean Corpuscular Volume 93.3, Mean Corpuscular He moglobin 30.7, Mean Corpuscular Hemoglobin Concent 32.9, Red Cell Distribution Width 14.2 Microbiology Microbiology 03/14/19 Blood Culture, Received Pending 03/14/19 Blood Culture, Received Pending Assessment/Plan 64 year old female with PMH of 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 Patient had last passed urine early in the morning and then had not Voided the whole day. Patient last had chemotherapy on 03/09 and 03/10 and after that had 4 days of oral dexamethasone which finished yesterday. Patient also had Neulasta on 03/10/19. In the ED patient was noted to have a WBC of 28K , Creatinine of 1.7, lipase of 687. Patient also had an acute urinary retention which required Newton placement which yielded 500 cc on initial insertion. An abdominal ZXray showed moderate stool burden and patient did admit to be often constipated. At CT abdomen / pelvis showed Mild peritoneal ascites which is increased since 01/28/2019. Contracted prepyloric gastric antrum with some fold thickening. Antral gastritis is not excluded. Slight colonic wall thickening suggesting minimal nonspecific pancolitis, increased since the prior study. Patein is being admitted for JOYCE, acute urinary retention, Leucocytosis and possibly gastritis/duodenitis and colitis. JOYCE due to obstructive uropathy +/- mild dehydration from poor oral intake. obstructive relieved by placement of Newton yielded 500 cc on initial placement will continue with IVF. Upper transabdominal pain with elevated lipase possibly due to gastritis/ duodenitis patient on oral dexamethasone, getting chemotherapy will start pantoprazole [place] prn Possible colitis will give Ceftriaxone and flagyl will send procalcitonin and lactate levels if procalcitonin is negative will discontinue antibiotics. Leucocytosis this is probably due to Neulasta and dexamethasone However CT abdomen says possible colitis so will give ceftriaxone and flagyl . It could be just inflammatory colitis from chemotherapy If procalcitonin is negative will discontinue antibiotics. patient is afebrile. 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 DVT prophylaxis has been ordered. Plan / VTE VTE Prophylaxis Ordered?: Yes CAL PIERCE MD Mar 15, 2019 01:04
[2019-03-15] MEDS: NS 1,000 ML IV SCH ×2 (01:14→16:36)
[2019-03-15] MEDS: PANTOPRAZOLE 40MG INJ (PROTONIX) (C9113) IV SCH ×2 (01:15→21:15)
[2019-03-15] MEDS: metroNIDAZOLE 500 MG in APPROPRIATE DILUENT 1 EA IV SCH ×3 (01:30→16:25)
[2019-03-15 06:00] VITALS: BP 96/51
[2019-03-15 06:58] LABS: HEMATOCRIT 25.2 % (36.0-47.0); MEAN CORPUSCULAR HEMOGLOBIN 29.4 pg (27.0-33.0); MEAN CORPUSCULAR HGB CONC 31.7 g/dl (32.0-36.5); MEAN CORPUSCULAR VOLUME 92.6 fl (80.0-96.0); PLATELET COUNT, AUTOMATED 122 10^3/uL (150-450); RED BLOOD COUNT 2.72 10^6/uL (4.00-5.40)
[2019-03-15 07:24] LABS: BLOOD UREA NITROGEN 22 MG/DL (7-18); CALCIUM LEVEL 7.8 MG/DL (8.8-10.2); CARBON DIOXIDE LEVEL 26 MEQ/L (21-32); CHLORIDE LEVEL 107 MEQ/L (98-107); CREATININE FOR GFR 0.77 MG/DL (0.55-1.30); GLOMERULAR FILTRATION RATE > 60.0 (>45); GLUCOSE, FASTING 89 MG/DL (70-100); POTASSIUM SERUM 3.7 MEQ/L (3.5-5.1); SODIUM LEVEL 140 MEQ/L (136-145)
--- NOTE | 2019-03-15 07:36 | IPNPDOC ---
Date Seen The patient was seen on 03/15/19. Progress Note SUBJECTIVE: Pt seen and examined at the bedside. Chart has been reviewed.despite sbp 98, no c/o dizziness, or lightheadedness.improved abd pain from yesterday, no radiation, no dysuria, urgency or frequency. no fever or chills. wbc down to 8 no c/o chills. has not gotten out of bed yet this morning. Denies: Chills, Fever, Night SweatsPain, Vision changeead Aches, Ear Pain, Dysphagia,Rash, Lesions, BreakdownDyspnea, CoughDenies: Chest Pain, Palpitations, Orthopnea, Paroxysmal Noc. Dyspnea, Lt HeadednessReports: Nausea, Abdominal Pain, Constipation Genitourinary RetentionDenies: Bruising, Bleeding ExcessivelyDenies: Neck Pain, Back Pain, Joint Pain, Muscle Pain, Spasms OBJECTIVE Physical Examination vitals: pls see below General Exam: Positive: Alert, Cooperative, No Acute Distress Eye Exam: Positive: PERRLA, Conjunctiva & lids normal, EOMI; Negative: Sclera icteric ENT Exam: Positive: Atraumatic, Mucous membr. moist/pink, Pharynx Normal Neck Exam: Positive: Supple; Negative: JVD, thyromegaly Chest Exam: Positive: Clear to auscultation, Normal air movement Heart Exam: Positive: Rate Normal, Regular Rhythm, Normal S1, Normal S2; Negative: Murmurs, Rubs Abdomen Exam: Positive: Normal bowel sounds, Soft, Tenderness (in jyoti epigastrium), Other (No guarding or rigidity or rebound tenderness. 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 Patient had last passed urine early in the morning and then had not Voided the whole day. Patient last had chemotherapy on 03/09 and 03/10 and after that had 4 days of oral dexamethasone which finished yesterday. Patient also had Neulasta on 03/10/19. In the ED patient was noted to have a WBC of 28K , Creatinine of 1.7, lipase of 687. Patient also had an acute urinary retention which required Newton placement which yielded 500 cc on initial insertion. An abdominal ZXray showed moderate stool burden and patient did admit to be often constipated. At CT abdomen / pelvis showed Mild peritoneal ascites which is increased since 01/28/2019. Contracted prepyloric gastric antrum with some fold thickening. Antral gastritis is not excluded. Slight colonic wall thickening suggesting minimal nonspecific pancolitis, increased since the prior study. Patein is being admitted for JOYCE, acute urinary retention, Leucocytosis and possibly gastritis/duodenitis and possible colitis. JOYCE due to obstructive uropathy +/- mild dehydration from poor oral intake. obstructive relieved by placement of Newton yielded 500 cc on initial placement will continue with IVF. Upper transabdominal pain with elevated lipase possibly due to gastritis/ duodenitis patient on oral dexamethasone, getting chemotherapy will start pantoprazole [place] prn Possible colitis will give Ceftriaxone and flagyl will send procalcitonin and lactate levels if procalcitonin is negative will discontinue antibiotics. Leucocytosis this is probably due to Neulasta and dexamethasone However CT abdomen says possible colitis so will give ceftriaxone and flagyl . It could be just inflammatory colitis from chemotherapy If procalcitonin is negative will discontinue antibiotics. patient is afebrile. 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 DVT prophylaxis has been ordered. disposition: 2-3 days pending clinical improvement. Consulted physical therapy for home safety evaluation. VS, I&O, 24H, Fishbone Vital Signs/I&O Vital Signs Date Time Temp Pulse Resp B/P (MAP) Pulse Ox O2 Delivery O2 Flow Rate FiO2 03/15/19 06:00 98.5 78 18 96/51 (66) 96 03/15/19 00:15 Room Air I&O- Last 24 Hours up to 6 AM 03/15/19 06:00 Intake Total 1200 ml Output Total 650 ml Balance 550 ml Laboratory Data 24H LABS Laboratory Tests 2 03/14/19 18:51: Urine Color YELLOW, Urine Appearance CLEAR, Urine pH 5.0, Urine Specific [place] 1.018, Urine Protein NEGATIVE, Urine Glucose (UA) NEGATIVE, Urine Ketones NEGATIVE, Urine Blood 1+H, Urine Nitrite NEGATIVE, Urine Bilirubin NEGATIVE, Urine Urobilinogen 0.2, Urine Leukocyte Esterase NEGATIVE, Urine WBC (Auto) 5H, Urine RBC (Auto) 4H, Urine Hyaline Casts (Auto) 0, Urine Bacteria (Auto) NEGATIVE, Urine Squamous Epithelial Cells 0, Urine Mucus (Auto) SMALL, Urine Sperm (Auto) 03/14/19 19:37: Immature Granulocyte % (Auto) , Nucleated Red Blood Cells % (auto) 0.0, Neutrophils 89H, Band Neutrophils 1, Lymphocytes (Manual) 10L, Hypersegmented Polys 1+, Dohle Bodies 1+, Platelet Estimate DECREASED, Anion Gap 7L, Glomerular Filtration Rate 31.7L, Calcium Level 8.5L, Aspartate Amino Transf (AST/SGOT) 17, Alanine Aminotransferase (ALT/SGPT) 13, Alkaline Phosphatase 150H, Total Bilirubin 0.4, Direct Bilirubin < 0.1, Total Protein 5.8L, Albumin 3.2, Albumin/Globulin Ratio 1.23, Lipase 649H 03/15/19 01:09: Lactic Acid Level 1.6 03/15/19 06:33: Immature Granulocyte % (Auto) , Nucleated Red Blood Cells % (auto) 0.0 CBC/BMP Laboratory Tests 03/14/19 19:37 Red Blood Count 3.13 L, Mean Corpuscular Volume 93.3, Mean Corpuscular Hemoglobin 30.7, Mean Corpuscular Hemoglobin Concent 32.9, Red Cell Distribution Width 14.2 03/15/19 06:33 Red Blood Count 2.72 L, Mean Corpuscular Volume 92.6, Mean Corpuscular Hemoglobin 29.4, Mean Corpuscular Hemoglobin Concent 31.7 L, Red Cell Distribution Width 13.9 Microbiology Microbiology 03/14/19 Blood Culture, Received Pending 03/14/19 Blood Culture, Received Pending NOELLE HOPE MD Mar 15, 2019 07:16
--- NOTE | 2019-03-15 07:36 | REP ---
Acute abdominal series three views including PA chest and supine upright abdomen: PA chest: There is minor atelectasis in the left costophrenic angle. Lung esteban otherwise clear. Cardiac size is normal. The roberto, mediastinum, skeletal structures are unremarkable. There is no free subdiaphragmatic air. There is a right IJ [id number] with the tip at the confluence of the superior vena cava and right atrium. Impression: No free subdiaphragmatic air. Minor atelectasis in the left costophrenic angle. Abdomen, supine upright views: There are fluid levels in bowel loops in the right upper quadrant. This is nonspecific and could represent focal ileus or impending obstruction. There are surgical clips in the right upper quadrant. There are no calcifications or foreign bodies. The bladder appears distended. The skeletal structures and soft tissues otherwise are unremarkable. Impression: Nonspecific bowel gas pattern. Electronically Signed by Yusuf Rowe MD 03/15/2019 07:27 A
[2019-03-15 08:06] LABS: LYMPHOCYTES 23 % (16-52); NEUTROPHILS 77 % (35-75); PLATELET ESTIMATE DECREASED (NORMAL)
[2019-03-15 08:07] LABS: ANISOCYTOSIS 1+
[2019-03-15] MEDS: busPIRone 5 MG TAB PO SCH ×2 (08:37→21:15)
[2019-03-15] MEDS: DOCUSATE SODIUM 100 MG CAP PO SCH ×2 (08:38→21:15)
[2019-03-15] MEDS: ENOXAPARIN 30 MG/0.3 ML SYR (J1650) SC SCH (08:38)
[2019-03-15] MEDS ORDERED: PREVNAR 13 VACCINE SYRINGE (CPT CODE:90670) IM ONE (09:00)
[2019-03-15] MEDS ORDERED: ENOXAPARIN 40 MG/0.4 ML SYRINGE (J1650) SC SCH (09:00)
[2019-03-15 10:00] VITALS: BP 119/70
[2019-03-15 14:00] VITALS: BP 123/74
[2019-03-15 16:28] VITALS: BP 131/77
[2019-03-15] MEDS: ACETAMINOPHEN TAB 650MG DOSE (2X325MG) PO PRN (16:36)
[2019-03-15 22:00] VITALS: BP 118/64
[2019-03-16] MEDS: ACETAMINOPHEN TAB 650MG DOSE (2X325MG) PO PRN ×2 (05:42→17:28)
[2019-03-16] MEDS: NS 1,000 ML IV SCH (05:44)
[2019-03-16 06:00] VITALS: BP 133/77
[2019-03-16 06:17] LABS: BASO % 0.6 % (0.0-1.0); EOS % 0.6 % (0.0-3.0); HEMATOCRIT 24.8 % (36.0-47.0); HEMOGLOBIN 8.1 g/dl (12.0-15.5); LYMPH # 0.8 10^3/uL (1.5-4.5); LYMPH % 46.2 % (24.0-44.0); MEAN CORPUSCULAR HEMOGLOBIN 30.5 pg (27.0-33.0); MEAN CORPUSCULAR HGB CONC 32.7 g/dl (32.0-36.5); MEAN CORPUSCULAR VOLUME 93.2 fl (80.0-96.0); MONO # 0.1 10^3/uL (0.0-0.8); RED BLOOD COUNT 2.66 10^6/uL (4.00-5.40)
[2019-03-16 06:38] LABS: NEUTROPHILS # 0.8 10^3/uL (1.8-7.7); PLATELET COUNT, AUTOMATED 85 10^3/uL (150-450); WHITE BLOOD COUNT 1.7 10^3/uL (4.0-10.0)
[2019-03-16 06:41] LABS: BLOOD UREA NITROGEN 12 MG/DL (7-18); CALCIUM LEVEL 7.9 MG/DL (8.8-10.2); CARBON DIOXIDE LEVEL 30 MEQ/L (21-32); CHLORIDE LEVEL 105 MEQ/L (98-107); CREATININE FOR GFR 0.48 MG/DL (0.55-1.30); GLOMERULAR FILTRATION RATE > 60.0 (>45); GLUCOSE, FASTING 88 MG/DL (70-100); POTASSIUM SERUM 3.2 MEQ/L (3.5-5.1); SODIUM LEVEL 141 MEQ/L (136-145)
[2019-03-16] MEDS ORDERED: POTASSIUM CHLORIDE 10 MEQ SR TABLET PO ONE (07:15)
[2019-03-16] MEDS: DOCUSATE SODIUM 100 MG CAP PO SCH ×2 (09:19→21:32)
[2019-03-16] MEDS: busPIRone 5 MG TAB PO SCH ×2 (09:19→21:32)
[2019-03-16] MEDS: ENOXAPARIN 30 MG/0.3 ML SYR (J1650) SC SCH (09:19)
[2019-03-16] MEDS: FILGRASTIM 300 MCG/0.5 ML SYRINGE (J1442 PER 1MCG) SC SCH (10:06)
[2019-03-16 14:00] VITALS: BP 129/80
--- NOTE | 2019-03-16 14:10 | IPNPDOC ---
Date Seen The patient was seen on 03/16/19. Progress Note SUBJECTIVE: despite wbc 1.7, no fever or chills. denies any cough,sob, nausea, vomiting, abdominal pain, diarrhea. pt is cooperative with physical therapy and has been ambulating better. OBJECTIVE Physical Examination vitals: pls see below General Exam: Positive: Alert, Cooperative, No Acute Distress Eye Exam: Positive: PERRLA, Conjunctiva & lids normal, EOMI; Negative: Sclera icteric ENT Exam: Positive: Atraumatic, Mucous membr. moist/pink, Pharynx Normal Neck Exam: Positive: Supple; Negative: JVD, thyromegaly Chest Exam: Positive: Clear to auscultation, Normal air movement Heart Exam: Positive: Rate Normal, Regular Rhythm, Normal S1, Normal S2; Negative: Murmurs, Rubs Abdomen Exam: Positive: Normal bowel sounds, Soft, Tenderness (in jyoti epigastrium), Other (No guarding or rigidity or rebound tenderness. 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 Patient had last passed urine early in the morning and then had not Voided the whole day. Patient last had chemotherapy on 03/09 and 03/10 and after that had 4 days of oral dexamethasone which finished yesterday. Patient also had Neulasta on 03/10/19. In the ED patient was noted to have a WBC of 28K , Creatinine of 1.7, lipase of 687. Patient also had an acute urinary retention which required Newton placement which yielded 500 cc on initial insertion. An abdominal ZXray showed moderate stool burden and patient did admit to be often constipated. At CT abdomen / pelvis showed Mild peritoneal ascites which is increased since 01/28/2019. Contracted prepyloric gastric antrum with some fold thickening. Antral gastritis is not excluded. Slight colonic wall thickening suggesting minimal nonspecific pancolitis, increased since the prior study. Bryanna is being admit billy for JOYCE, acute urinary retention, Leucocytosis and possibly gastritis/duodenitis and possible colitis. JOYCE due to obstructive uropathy +/- mild dehydration from poor oral intake. obstructive relieved by placement of Newton yielded 500 cc on initial placement will continue with IVF. Upper transabdominal pain with elevated lipase, resolved possibly due to gastritis/ duodenitis patient on oral dexamethasone, getting chemotherapy on pantoprazole [place] prn Possible colitis s/p Ceftriaxone and flagyl due to procalcitonin being negative ,discontinued antibiotics. Leucocytosis, resolved due to Neulasta and dexamethasone However CT abdomen says possible colitis so s/p ceftriaxone and flagyl . It could be just inflammatory colitis from chemotherapy patient is afebrile. 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 DVT prophylaxis has been ordered. disposition: 2-3 days pending clinical improvement. Consulted physical therapy for home safety evaluation. VS, I&O, [facility]/I&O Vital Signs Date Time Temp Pulse Resp B/P (MAP) Pulse Ox O2 Delivery O2 Flow Rate FiO2 03/16/19 06:00 98.5 79 16 133/77 (95) 96 03/15/19 00:15 Room Air I&O- Last 24 Hours up to 6 AM 03/16/19 06:00 Intake Total 1870 ml Output Total 3425 ml Balance -1555 ml Laboratory Data 24H LABS Laboratory Tests 2 03/16/19 05:25: Immature Granulocyte % (Auto) 0.6, White Blood Count 1.7L, Red Blood Count 2.66L, Hemoglobin 8.1L, Hematocrit 24.8L, Mean Corpuscular Volume 93.2, Mean Corpuscular Hemoglobin 30.5, Mean Corpuscular Hemoglobin Concent 32.7, Red Cell Distribution Width 13.6, Platelet Count 85L, Neutrophils (%) (Auto) 48.0, Lymphocytes (%) (Auto) 46.2H, Monocytes (%) (Auto) 4.0, Eosinophils (%) (Auto) 0.6, Basophils (%) (Auto) 0.6, Neutrophils # (Auto) 0.8L, Lymphocytes # (Auto) 0.8L, Monocytes # (Auto) 0.1, Eosinophils # (Auto) 0.0, Basophils # (Auto) 0.0, Nucleated Red Blood Cells % (auto) 1.2H, Immature Platelet Fraction 3.3, Anion Gap 6L, Glomerular Filtration Rate > 60.0, Blood Urea Nitrogen 12, Creatinine 0.48L, Sodium Level 141, Potassium Level 3.2L, Chloride Level 105, Carbon Dioxide Level 30, Calcium Level 7.9L CBC/BMP Laboratory Tests 03/16/19 05:25 Red Blood Count 2.66 L, Mean Corpuscular Volume 93.2, Mean Corpuscular Hemoglobin 30.5, Mean Corpuscular Hemoglobin Concent 32.7, Red Cell Distribution Width 13.6, Neutrophils (%) (Auto) 48.0, Lymphocytes (%) (Auto) 46.2 H, Monocytes (%) (Auto) 4.0, Eosinophils (%) (Auto) 0.6, Basophils (%) (Auto) 0.6, Neutrophils # (Auto) 0.8 L, Lymphocytes # (Auto) 0.8 L, Monocytes # (Auto) 0.1, Eosinophils # (Auto) 0.0, Basophils # (Auto) 0.0, Calcium Level 7.9 L Microbiology Microbiology 03/14/19 Blood Culture - Preliminary, Resulted No growth after 24 hours . All specim... 03/14/19 Blood Culture - Preliminary, Resulted No growth after 24 hours . All specim... NOELLE HOPE MD Mar 16, 2019 14:10
[2019-03-16] MEDS: PANTOPRAZOLE 40MG INJ (PROTONIX) (C9113) IV SCH (21:32)
[2019-03-16 22:00] VITALS: BP 132/79
[2019-03-17 06:00] VITALS: BP 133/80
[2019-03-17 06:51] LABS: BASO % 0.7 % (0.0-1.0); EOS % 0.7 % (0.0-3.0); HEMATOCRIT 26.7 % (36.0-47.0); HEMOGLOBIN 8.8 g/dl (12.0-15.5); LYMPH # 0.4 10^3/uL (1.5-4.5); LYMPH % 27.1 % (24.0-44.0); MEAN CORPUSCULAR HEMOGLOBIN 30.2 pg (27.0-33.0); MEAN CORPUSCULAR VOLUME 91.8 fl (80.0-96.0); MONO # 0.2 10^3/uL (0.0-0.8); MONO % 12.5 % (0.0-5.0); NEUTROPHILS % 55.5 % (36.0-66.0); RED BLOOD COUNT 2.91 10^6/uL (4.00-5.40)
[2019-03-17 07:16] LABS: BLOOD UREA NITROGEN 10 MG/DL (7-18); CALCIUM LEVEL 8.4 MG/DL (8.8-10.2); CARBON DIOXIDE LEVEL 28 MEQ/L (21-32); CHLORIDE LEVEL 102 MEQ/L (98-107); CREATININE FOR GFR 0.56 MG/DL (0.55-1.30); GLOMERULAR FILTRATION RATE > 60.0 (>45); GLUCOSE, FASTING 92 MG/DL (70-100); POTASSIUM SERUM 3.6 MEQ/L (3.5-5.1); SODIUM LEVEL 137 MEQ/L (136-145)
[2019-03-17 07:41] LABS: NEUTROPHILS # 0.8 10^3/uL (1.8-7.7); PLATELET COUNT, AUTOMATED 71 10^3/uL (150-450); WHITE BLOOD COUNT 1.4 10^3/uL (4.0-10.0)
[2019-03-17] MEDS ORDERED: CIPROFLOXACIN 500 MG TAB PO ONE (07:45)
[2019-03-17] MEDS: metroNIDAZOLE (FLAGYL) 500 MG TAB PO SCH ×3 (07:49→20:59)
--- NOTE | 2019-03-17 07:51 | IPNPDOC ---
Date Seen The patient was seen on 03/17/19. Progress Note SUBJECTIVE: despite wbc 1.44, no fever or chills. denies any cough,sob, nausea, vomiting, abdominal pain, diarrhea. pt is cooperative with physical therapy, passed HSE and has been ambulating bet ter. Pt has had a still before and was previously seen by Dr. Lind, but has been referred to [facility] for bladder surgery after completing a full 8 cycles of chemo, with two more planned for the near future. Per Dr. Zandra Arvizu, medical oncologist, continue with neupogen 300 mcg daily if ANC<1000, and empiric abx. OBJECTIVE Physical Examination vitals: pls see below General Exam: Positive: Alert, Cooperative, No Acute Distress Eye Exam: Positive: PERRLA, Conjunctiva & lids normal, EOMI; Negative: Sclera icteric ENT Exam: Positive: Atraumatic, Mucous membr. moist/pink, Pharynx Normal Neck Exam: Positive: Supple; Negative: JVD, thyromegaly Chest Exam: Positive: Clear to auscultation, Normal air movement Heart Exam: Positive: Rate Normal, Regular Rhythm, Normal S1, Normal S2; Negative: Murmurs, Rubs Abdomen Exam: Positive: Normal bowel sounds, Soft, Tenderness (in jyoti epigastrium), Other (No guarding or rigidity or rebound tenderness. 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 Patient had last passed urine early in the morning and then had not Voided the whole day. Patient last had chemotherapy on 03/09 and 03/10 and after that had 4 days of oral dexamethasone which finished yesterday. Patient also had Neulasta on 03/10/19. In the ED patient was noted to have a WBC of 28K , Creatinine of 1.7, lipase of 687. Patient also had an acute urinary retention which required Still placement which yielded 500 cc on initial insertion. An abdominal ZXray showed moderate stool burden and patient did admit to be often constipated. At CT abdomen / pelvis showed Mild peritoneal ascites which is increased since 01/28/2019. Contracted prepyloric gastric antrum with some fold thickening. Antral gastritis is not excluded. Slight colonic wall thickening suggesting minimal nonspecific pancolitis, increased since the prior study. Patein is being admitted for JOYCE, acute urinary retention, Leucocytosis and possibly gas tritis/duodenitis and possible colitis. obstructive uropathy +/- mild dehydration from poor oral intake. obstructive relieved by placement of Still yielded 500 cc on initial placement s/p ivfluids. pt is keeping up with oral intake Antral Gastritis on PPI Massey colitis s/p Ceftriaxone and flagyl due to procalcitonin being negative ,discontinued flagyl and ceftriaxone. however due to ANC<1000, pt empirically on cipro flagyl Leucocytosis, resolved due to Neulasta and dexamethasone However CT abdomen says possible colitis so s/p ceftriaxone and flagyl . It could be just inflammatory colitis from chemotherapy patient is afebrile. 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 Pt has had a still before and was previously seen by Dr. Lind, but has been referred to [facility] for bladder surgery after completing a full 8 cycles of chemo, with two more planned for the near future. Per Dr. Zandra Arvizu, medical oncologist, continue with neupogen 300 mcg daily if ANC<1000, and empiric abx. DVT prophylaxis has been ordered. disposition: await ANC>1000, passed HSE, on empiric abx, will need 3-5days. VS, I&O, 24H, Fishbone Vital Signs/I&O Vital Signs Date Time Temp Pulse Resp B/P (MAP) Pulse Ox O2 Delivery O2 Flow Rate FiO2 03/17/19 06:00 98.8 92 14 133/80 (97) 96 03/15/19 00:15 Room Air I&O- Last 24 Hours up to 6 AM 03/17/19 06:00 Intake Total 1620 ml Output Total 3250 ml Balance -1630 ml Laboratory Data 24H LABS Laboratory Tests 2 03/17/19 06:03: Anion Gap 7L, Glomerular Filtration Rate > 60.0, Blood Urea Nitrogen 10, Creatin ine 0.56, Sodium Level 137, Potassium Level 3.6, Chloride Level 102, Carbon Dioxide Level 28, Calcium Level 8.4L CBC/BMP Laboratory Tests 03/17/19 06:03 Calcium Level 8.4 L Microbiology Microbiology 03/14/19 Blood Culture - Preliminary, Resulted No Growth after 48 hours. All Specime... 03/14/19 Blood Culture - Preliminary, Resulted No Growth after 48 hours. All Specime... NOELLE HOPE MD Mar 17, 2019 07:34
[2019-03-17] MEDS: DOCUSATE SODIUM 100 MG CAP PO SCH ×2 (09:04→20:59)
[2019-03-17] MEDS: busPIRone 5 MG TAB PO SCH ×2 (09:04→20:59)
[2019-03-17] MEDS: ENOXAPARIN 30 MG/0.3 ML SYR (J1650) SC SCH (09:05)
[2019-03-17] MEDS: FILGRASTIM 300 MCG/0.5 ML SYRINGE (J1442 PER 1MCG) SC SCH (10:33)
[2019-03-17 14:00] VITALS: BP 131/72
[2019-03-17] MEDS: CIPROFLOXACIN 500 MG TAB PO SCH (17:02)
[2019-03-17] MEDS: PANTOPRAZOLE 40MG INJ (PROTONIX) (C9113) IV SCH (20:59)
[2019-03-17 22:00] VITALS: BP 115/77
[2019-03-18] MEDS: metroNIDAZOLE (FLAGYL) 500 MG TAB PO SCH ×3 (05:53→22:17)
[2019-03-18] MEDS: CIPROFLOXACIN 500 MG TAB PO SCH ×2 (05:53→18:02)
[2019-03-18 05:57] LABS: HEMOGLOBIN 9.4 g/dl (12.0-15.5); MEAN CORPUSCULAR HEMOGLOBIN 30.5 pg (27.0-33.0); MEAN CORPUSCULAR HGB CONC 33.6 g/dl (32.0-36.5); MEAN CORPUSCULAR VOLUME 90.9 fl (80.0-96.0); RED BLOOD COUNT 3.08 10^6/uL (4.00-5.40); WHITE BLOOD COUNT 2.3 10^3/uL (4.0-10.0)
[2019-03-18 06:00] VITALS: BP 113/75
[2019-03-18 06:18] LABS: BLOOD UREA NITROGEN 9 MG/DL (7-18); CALCIUM LEVEL 8.7 MG/DL (8.8-10.2); CARBON DIOXIDE LEVEL 30 MEQ/L (21-32); CHLORIDE LEVEL 100 MEQ/L (98-107); CREATININE FOR GFR 0.67 MG/DL (0.55-1.30); GLOMERULAR FILTRATION RATE > 60.0 (>45); GLUCOSE, FASTING 96 MG/DL (70-100); POTASSIUM SERUM 3.5 MEQ/L (3.5-5.1); SODIUM LEVEL 137 MEQ/L (136-145)
[2019-03-18 06:29] LABS: PLATELET COUNT, AUTOMATED 71 10^3/uL (150-450)
[2019-03-18 06:36] LABS: BASOPHILS 1 % (0-4); LYMPHOCYTES 35 % (16-52); MONOCYTES 7 % (0-8); NEUTROPHILS 56 % (35-75); PLATELET ESTIMATE MARKED DECREASE (NORMAL)
[2019-03-18] MEDS: ENOXAPARIN 30 MG/0.3 ML SYR (J1650) SC SCH (10:23)
[2019-03-18] MEDS: DOCUSATE SODIUM 100 MG CAP PO SCH ×2 (10:23→22:17)
[2019-03-18] MEDS: busPIRone 5 MG TAB PO SCH ×2 (10:24→22:17)
[2019-03-18 14:00] VITALS: BP 127/65
[2019-03-18] MEDS: FILGRASTIM 300 MCG/0.5 ML SYRINGE (J1442 PER 1MCG) SC SCH (15:37)
--- NOTE | 2019-03-18 16:24 | IPNPDOC ---
Date Seen The patient was seen on 03/18/19. Progress Note SUBJECTIVE: white count is increasing appropriately with neupogen and pt has had no fever or chills. denies any cough,sob, nausea, vomiting, abdominal pain, diarrhea. pt is cooperative with physical therapy, passed HSE and has been ambulating better. Pt has had a still before and was previously seen by Dr. Lind, but has been referred to [facility] for bladder surgery after completing a full 8 cycles of chemo, with two more planned for the near future. Per Dr. Zandra Arvizu, medical oncologist, continue with neupogen 300 mcg daily if ANC<1000, and empiric abx. OBJECTIVE Physical Examination vitals: pls see below General Exam: Positive: Alert, Cooperative, No Acute Distress Eye Exam: Positive: PERRLA, Conjunctiva & lids normal, EOMI; Negative: Sclera icteric ENT Exam: Positive: Atraumatic, Mucous membr. moist/pink, Pharynx Normal Neck Exam: Positive: Supple; Negative: JVD, thyromegaly Chest Exam: Positive: Clear to auscultation, Normal air movement Heart Exam: Positive: Rate Normal, Regular Rhythm, Normal S1, Normal S2; Negative: Murmurs, Rubs Abdomen Exam: Positive: Normal bowel sounds, Soft, Tenderness (in jyoti epigastrium), Other (No guarding or rigidity or rebound tenderness. 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 Patient had last passed urine early in the morning and then had not Voided the whole day. Patient last had chemotherapy on 03/09 and 03/10 and after that had 4 days of oral dexamethasone which finished yesterday. Patient also had Neulasta on 03/10/19. In the ED patient was noted to have a WBC of 28K , Creatinine of 1.7, lipase of 687. Patient also had an acute urinary retention which required Still placement which yielded 500 cc on initial insertion. An abdominal ZXray showed moderate stool burden and patient did admit to be often constipated. At CT abdomen / pelvis showed Mild peritoneal ascites which is increased since 01/28/2019. Contracted prepyloric gastric antrum with some fold thickening. Antral gastritis is not excluded. Slight colonic wall thickening suggesting minimal nonspecific pancolitis, increased since the prior study. Patein is being admitted for JOYCE, acute urinary retention, Leucocytosis and possibly gastritis/duodenitis and possible colitis. obstructive uropathy +/- mild dehydration from poor oral intake. obstructive relieved by placement of Still yielded 500 cc on initial placement s/p ivfluids. pt is keeping up with oral intake Antral Gastritis on PPI Massey colitis s/p Ceftriaxone and flagyl due to procalcitonin being negative ,discontinued flagyl and ceftriaxone. however due to ANC<1000, pt empirically on cipro flagyl Leucocytosis, resolved due to Neulasta and dexamethasone However CT abdomen says possible colitis so s/p ceftriaxone and flagyl . It could be just inflammatory colitis from chemotherapy patient is afebrile. 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 Pt has had a still before and was previously seen by Dr. Lind, but has been referred to [facility] for bladder surgery after completing a full 8 cycles of chemo, with two more planned for the near future. Per Dr. Zandra Arvizu, medical oncologist, continue with neupogen 300 mcg daily if ANC<1000, and empiric abx. DVT prophylaxis has been ordered. disposition: dc plans thursday or thursday VS, I&O, 24H, Fishbone Vital Signs/I&O Vital Signs Date Time Temp Pulse Resp B/P (MAP) Pulse Ox O2 Delivery O2 Flow Rate FiO2 03/18/19 14:00 99.1 100 16 127/65 (85) 95 03/15/19 00:15 Room Air I&O- Last 24 Hours up to 6 AM 03/18/19 06:00 Intake Total 2160 ml Output Total 1600 ml Balance 560 ml Laboratory Data 24H LABS Laboratory Tests 2 03/18/19 05:20: Immature Granulocyte % (Auto) , Nucleated Red Blood Cells % (auto) 0.0, Neutrophils 56, Band Neutrophils 1, Lymphocytes (Manual) 35, Monocytes (Manual) 7, Basophils (Manual) 1, Platelet Estimate MARKED DECREASE, Red Blood Cell Morphology NORMAL, Anion Gap 7L, Glomerular Filtration Rate > 60.0, Blood Urea Nitrogen 9, Creatinine 0.67, Sodium Level 137, Potassium Level 3.5, Chloride Level 100, Carbon Dioxide Level 30, Calcium Level 8.7L 03/18/19 15:39: CBC/BMP Laboratory Tests 03/18/19 05:20 Red Blood Count 3.08 L, Mean Corpuscular Volume 90.9, Mean Corpuscular Hemoglobin 30.5, Mean Corpuscular Hemoglobin Concent 33.6, Red Cell Distribution Width 13.2, Calcium Level 8.7 L Microbiology Microbiology 03/14/19 Blood Culture - Preliminary, Resulted No Growth after 72 hours. All specime... 03/14/19 Blood Culture - Preliminary, Resulted No Growth after 72 hours. All specime... NOELLE HOPE MD Mar 18, 2019 16:24
[2019-03-18 22:00] VITALS: BP 125/71
[2019-03-18] MEDS: PANTOPRAZOLE 40MG INJ (PROTONIX) (C9113) IV SCH (22:17)
[2019-03-19] MEDS: metroNIDAZOLE (FLAGYL) 500 MG TAB PO SCH ×2 (05:43→14:46)
[2019-03-19] MEDS: CIPROFLOXACIN 500 MG TAB PO SCH (05:43)
[2019-03-19 06:00] VITALS: BP 124/67
[2019-03-19 06:24] LABS: HEMATOCRIT 29.2 % (36.0-47.0); HEMOGLOBIN 9.6 g/dl (12.0-15.5); MEAN CORPUSCULAR HEMOGLOBIN 29.7 pg (27.0-33.0); MEAN CORPUSCULAR HGB CONC 32.9 g/dl (32.0-36.5); MEAN CORPUSCULAR VOLUME 90.4 fl (80.0-96.0); PLATELET COUNT, AUTOMATED 114 10^3/uL (150-450); RED BLOOD COUNT 3.23 10^6/uL (4.00-5.40); WHITE BLOOD COUNT 10.8 10^3/uL (4.0-10.0)
[2019-03-19 06:42] LABS: BLOOD UREA NITROGEN 9 MG/DL (7-18); CALCIUM LEVEL 8.6 MG/DL (8.8-10.2); CARBON DIOXIDE LEVEL 31 MEQ/L (21-32); CHLORIDE LEVEL 99 MEQ/L (98-107); CREATININE FOR GFR 0.69 MG/DL (0.55-1.30); GLOMERULAR FILTRATION RATE > 60.0 (>45); GLUCOSE, FASTING 98 MG/DL (70-100); POTASSIUM SERUM 3.3 MEQ/L (3.5-5.1); SODIUM LEVEL 138 MEQ/L (136-145)
[2019-03-19 07:51] LABS: ANISOCYTOSIS 1+; ATYPICAL LYMPH 2 % (0-5); BASOPHILS 1 % (0-4); HYPOCHROMASIA 1+; LYMPHOCYTES 25 % (16-52); MICROCYTOSIS 1+; MONOCYTES 7 % (0-8); MYELOCYTES 4 % (0-0); NEUTROPHILS 53 % (35-75); PLATELET ESTIMATE DECREASED (NORMAL); TOXIC GRANULATION 1+
[2019-03-19] MEDS ORDERED: CIPR-249 PO (08:43)
[2019-03-19] MEDS ORDERED: FLAG500T PO (08:43)
[2019-03-19 08:45] VITALS: BP 124/71
[2019-03-19] MEDS: busPIRone 5 MG TAB PO SCH (10:17)
[2019-03-19] MEDS: DOCUSATE SODIUM 100 MG CAP PO SCH (10:17)
[2019-03-19] MEDS: ENOXAPARIN 30 MG/0.3 ML SYR (J1650) SC SCH (10:19)
--- NOTE | 2019-03-19 12:06 | DS.PDOC ---
Discharge Summary General Date of Admission Mar 14, 2019 at 23:30 Date of Discharge March 19, 2019 Discharge Summary DISCHARGE DIAGNOSES: Chemotherapy-induced pancytopenia obstructive uropathy requiring hess Atral Gastritis Massey colitis Leucocytosis,on admission resolved, due to neulasta and steroids Neutropenia due to chemo Stage II Muscle invasive high-grade urothelial carcinoma of bladder with 4 cm an terior bladder wall mass DISCHARGE MEDS: pls see below DISCHARGE INSTRUCTIONS: HESS AT DISCHARGE IF PVR>350 UROLOGY FU IN 1 WK, PCP FU 1 WK, MEDICAL ONCOLOGY FU 1 WK HISTORY OF PRESENTING ILLNESS: DISCHARGE PHYSICAL EXAMINATION: vitals: pls see below General Exam: Positive: Alert, Cooperative, No Acute Distress Eye Exam: Positive: PERRLA, Conjunctiva & lids normal, EOMI; Negative: Sclera icteric ENT Exam: Positive: Atraumatic, Mucous membr. moist/pink, Pharynx Normal Neck Exam: Positive: Supple; Negative: JVD, thyromegaly Chest Exam: Positive: Clear to auscultation, Normal air movement Heart Exam: Positive: Rate Normal, Regular Rhythm, Normal S1, Normal S2; Negative: Murmurs, Rubs Abdomen Exam: Positive: Normal bowel sounds, Soft, Tenderness (in jyoti epigastrium), Other (No guarding or rigidity or rebound tenderness. 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 Patient had last passed urine early in the morning and then had not Voided the whole day. Patient last had chemotherapy on 03/09 and 03/10 and after that had 4 days of oral dexam ethasone which finished yesterday. Patient also had Neulasta on 03/10/19. In the ED patient was noted to have a WBC of 28K , Creatinine of 1.7, lipase of 687. Patient also had an acute urinary retention which required Hess placement which yielded 500 cc on initial insertion. An abdominal ZXray showed moderate stool burden and patient did admit to be often constipated. At CT abdomen / pelvis showed Mild peritoneal ascites which is increased since 01/28/2019. Contracted prepyloric gastric antrum with some fold thickening. Antral gastritis is not excluded. Slight colonic wall thickening suggesting minimal nonspecific pancolitis, increased since the prior study. Patein is being admitted for JOYCE, acute urinary retention, Leucocytosis and possibly gastritis/duodenitis and possible colitis. HOSPITAL COURSE Chemotherapy-induced pancytopenia requiring neupogen Neutropenia s/p cipro flagyl to complete 10 days s/p neupogen no fevers. obstructive uropathy +/- mild dehydration from poor oral intake. obstructive relieved by placement of Hess yielded 500 cc on initial placement s/p ivfluids. pt is keeping up with oral intake Antral Gastritis on PPI Massey colitis s/p Ceftriaxone and flagyl due to procalcitonin being negative ,discontinued flagyl and ceftriaxone. however due to ANC<1000, pt empirically on cipro flagyl Leucocytosis, resolved due to Neulasta and dexamethasone However CT abdomen says possible colitis so s/p ceftriaxone and flagyl . It could be just inflammatory colitis from chemotherapy patient is afebrile. 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 Pt has had a hess before and was previously seen by Dr. Lind, but has been referred to [facility] for bladder surgery after completing a full 8 cycles of chemo, with two more planned for the near future. Per Dr. Zandra Arvizu, medical oncologist, continue with neupogen 300 mcg daily if ANC<1000, and empiric abx. DVT prophylaxis has been ordered. TIME SPENT ON DISCHARGE: 30 MIN Vital Signs/I&Os Vital Signs Date Time Temp Pulse Resp B/P (MAP) Pulse Ox O2 Delivery O2 Flow Rate FiO2 03/19/19 08:45 96.6 108 19 124/71 (88) 96 03/15/19 00:15 Room Air I&O- Last 24 Hours up to 6 AM 03/19/19 06:00 Intake Total 1530 ml Output Total 2200 ml Balance -670 ml Laboratory Data Labs 24H Laboratory Tests 2 03/18/19 15:39: Urine Color STRAW, Urine Appearance CLEAR, Urine pH 6.0, Urine Specific [place] 1.001L, Urine Protein NEGATIVE, Urine Glucose (UA) NEGATIVE, Urine Ketones NE GATIVE, Urine Blood 1+H, Urine Nitrite NEGATIVE, Urine Bilirubin NEGATIVE, Urine Urobilinogen 0.2, Urine Leukocyte Esterase NEGATIVE, Urine WBC (Auto) 0, Urine RBC (Auto) 1, Urine Hyaline Casts (Auto) 0, Urine Bacteria (Auto) NEGATIVE, Urine Squamous Epithelial Cells 0, Urine Sperm (Auto) 03/19/19 05:35: Immature Granulocyte % (Auto) , Nucleated Red Blood Cells % (auto) 1.0H, Neutrophils 53, Band Neutrophils 8, Lymphocytes (Manual) 25, Monocytes (Manual) 7, Basophils (Manual) 1, Myelocytes 4H, Atypical Lymphocytes 2, Toxic Granulation 1+, Platelet Estimate DECREASED, Hypochromasia 1+, Anisocytosis 1+, Microcytosis 1+, Anion Gap 8, Glomerular Filtration Rate > 60.0, Blood Urea Nitrogen 9, Creatinine 0.69, Sodium Level 138, Potassium Level 3.3L, Chloride Level 99, Carbon Dioxide Level 31, Calcium Level 8.6L CBC/BMP Laboratory Tests 03/19/19 05:35 Red Blood Count 3.23 L, Mean Corpuscular Volume 90.4, Mean Corpuscular Hemoglobin 29.7, Mean Corpuscular Hemoglobin Concent 32.9, Red Cell Distribution Width 13.2, Calcium Level 8.6 L Microbiology Microbiology 03/14/19 Blood Culture - Preliminary, Resulted No Growth after 72 hours. All specime... 03/14/19 Blood Culture - Preliminary, Resulted No Growth after 72 hours. All specime... Discharge Medications Scheduled Buspirone HCl (Buspirone HCl) 5 Mg Tab, 5 MG PO BID, (Reported) Ciprofloxacin HCl (Cipro) 500 Mg Tablet, 500 MG PO BID Dexamethasone (Decadron) 4 Mg Tablet, 4 MG PO 4XWK, (Reported) THURSDAYS, THURSDAY, THURSDAY AND THURSDAY Metronidazole (Flagyl) 500 Mg Tablet, 500 MG PO Q8H FOR 10 DAYS Multivit-Minerals/Folic/Ginkgo (One Daily For Women 50+ Adv Tb) 1 Tab Tab, 1 TAB PO DAILY, (Reported) Pegfilgastrim (Neulasta) 6 Mg/0.6 Ml Syringe, 6 MG SC Q2WK, (Reported) THURSDAYS Scheduled PRN Olanzapine (Olanzapine) 10 Mg Tablet, 10 MG PO DAILY PRN for NAUSEA OR VOMITING, (Reported) Ondansetron HCl (Ondansetron HCl) 8 Mg Tablet, 8 MG PO Q6H PRN for NAUSEA OR VOMITING, (Reported) Prochlorperazine Maleate (Prochlorperazine Maleate) 10 Mg Tablet, 10 MG PO Q8H PRN for NAUSEA OR VOMITING, (Reported) Allergies Coded Allergies: No Known Allergies (Unverified , 01/06/19) NOELLE HOPE MD Mar 19, 2019 12:06
[2019-03-19] MEDS ORDERED: POTASSIUM CHLORIDE 10 MEQ SR TABLET PO ONE (13:00)
[2019-03-19 13:30] VITALS: BP 125/76
== END 2019-03-19 15:30 | disposition home or self-care (01) | DRG 682 ==
LOC: M ED 17:44 → EDBD 17:44 → M ED INP 23:30 → M MS5PR 03-15 00:45
PROVIDERS: ADMIT Internal Medicine Nephrology; ATTEND General Practice
DX: N17.9 Acute kidney failure, unspecified (principal); D61.810 Antineoplastic chemotherapy induced pancytopenia; K51.00 Ulcerative (chronic) pancolitis without complications; C67.3 Malignant neoplasm of anterior wall of bladder; N20.0 Calculus of kidney; D70.1 Agranulocytosis secondary to cancer chemotherapy; M19.90 Unspecified osteoarthritis, unspecified site; K57.90 Diverticulosis of intestine, part unspecified, without perforation or abscess without bleeding; K29.80 Duodenitis without bleeding; F41.9 Anxiety disorder, unspecified; R33.9 Retention of urine, unspecified; K59.00 Constipation, unspecified; Z79.899 Other long term (current) drug therapy; Z90.49 Acquired absence of other specified parts of digestive tract

== ENCOUNTER → 2019-03-25 | Outpatient (CLI) | payer MEDICARE, BC, OTHER ==
[~2019-03-25] MED LIST changes: +CIPR-249 PO; +FLAG500T PO; +GASTROGRAFIN SOLUTION 30ML (Q9963) As Ordered ONE; +ISOVUE-370 76% 100ML VIAL (Q9967) As Ordered ONE; +OLAN10TA2 PO; +PEG6SYR SC
--- NOTE | 2019-03-25 19:26 | REP ---
CT abdomen and pelvis without and with IV contrast: With oral contrast. History: Stage II bladder cancer. On chemotherapy. Recent urinary outlet obstruction requiring catheter. Rule out lymphadenopathy. Comparison CT study March 14, 2019 and January 28, 2019. CT contrast dose: 100 mL of intravenous Isovue 370. Findings: Preliminary digital hand coremaker radiograph shows a normal bowel gas pattern. There are clips in right upper quadrant. Axial CT images through the lung bases demonstrate minimal plate-like atelectatic changes in the lower lobes bilaterally. No pulmonary nodule is appreciated. No pleural effusion is seen. The liver and the spleen are normal in size and homogeneous in texture on pre and postcontrast imaging. There is one low density lesion the right lobe medially consistent with a small cyst. No other focal liver lesion is seen. No adrenal lesion is observed. Pancreas is unremarkable. There is an intrarenal calculus in the right kidney which measures 6 mm in greatest diameter. No hydronephrosis is seen. No renal mass lesion is observed. No retroperitoneal mass or adenopathy is seen. Urinary bladder is moderately distended. Filling the pelvis. Estimated or calculated bladder volume, 1278 ml. There is some focal linear increased attenuation in the anterior bladder wall just to the left of midline. This may be bladder wall calcification or conceivably some enhancement. It does not appear to have been present January 28, 2019. No pelvic adenopathy is seen. No uterine or ovarian abnormality is observed. Small and large intestinal bowel loops are normal in the abdomen and pelvis. There is no evidence of peritoneal disease. Bony destructive lesion is appreciated. Impression: Moderately distended urinary bladder at the time of today's CT study, 1.2 liters. There is a small zone of focal increased attenuation consistent calcification and/or wall enhancement to the left of midline in the anterior aspect of the urinary bladder. No tere nodularity or mass effect. Otherwise negative. Post cholecystectomy. Intrarenal calculus right kidney. Electronically Signed by Marco Antonio Pitts MD 03/26/2019 08:53 A
== END ==
LOC: M RAD 14:27
PROVIDERS: ATTEND Internal Medicine Medical Oncology
DX: C67.9 Malignant neoplasm of bladder, unspecified (principal); N20.0 Calculus of kidney; Z51.11 Encounter for antineoplastic chemotherapy
CPT/HCPCS: 74178; Q9963; Q9967

== ENCOUNTER → 2019-03-30 | Outpatient (CLI) | payer MEDICARE, BC, OTHER ==
[~2019-03-30] MED LIST changes: -GASTROGRAFIN SOLUTION 30ML (Q9963) As Ordered ONE; -ISOVUE-370 76% 100ML VIAL (Q9967) As Ordered ONE
--- NOTE | 2019-03-30 15:15 | REP ---
LEFT LOWER EXTREMITY DUPLEX VEINS: HISTORY: Swelling. There are no filling defects in the deep venous system. The deep venous system is patent. IMPRESSION: There is no deep venous thrombosis. Electronically Signed by Ananda Simon MD 03/30/2019 03:26 P
== END ==
LOC: M RAD 14:18
PROVIDERS: ATTEND Internal Medicine Medical Oncology
DX: M79.89 Other specified soft tissue disorders (principal)

== ENCOUNTER 2019-04-15 07:57 | Outpatient (CLI) | payer MEDICARE, BC, OTHER ==
[~2019-04-15] VITALS: Ht 162.6 cm; Wt 79.0 kg
[2019-04-15 08:09] VITALS: BP 148/71
[2019-04-15] MEDS ORDERED: diphenhydrAMINE 50 MG CAP PO ONE (08:15)
[2019-04-15] MEDS ORDERED: ACETAMINOPHEN TAB 650MG DOSE (2X325MG) PO ONE (08:15)
[2019-04-15] MEDS ORDERED: SODIUM CHLORIDE 0.9% INJ 10 ML SYR IV SCH (09:00)
[2019-04-15 10:40] VITALS: BP 141/72
== END 2019-04-15 10:45 | disposition home or self-care (01) ==
LOC: M INFU 07:57
PROVIDERS: ATTEND Internal Medicine Medical Oncology
DX: D64.9 Anemia, unspecified (principal)
CPT/HCPCS: 36430; P9016

== ENCOUNTER → 2019-04-19 | Outpatient (CLI) | payer MEDICARE, BC, OTHER ==
[~2019-04-19] MED LIST changes: +ISOVUE-370 76% 100ML VIAL (Q9967) As Ordered ONE
--- NOTE | 2019-04-19 15:48 | REP ---
REASON: History of bladder carcinoma. COMPARISON EXAMINATION: 02/15/2019. CONTRAST: 100 mL Isovue 370. The mediastinum and pulmonary roberto are unchanged. There is no evidence of a mass or adenopathy. There are no pleural or pericardial effusions. The imaged osseous structures are stable and intact. Evaluation of the lung esteban show no new abnormal nodules, masses, or opacities. Subsegmental atelectatic changes particularly in the lung bases are noted status quo. IMPRESSION: Stable CT examination of the chest with findings as described above. Electronically Signed by Mikal Turner DO 04/19/2019 04:20 P
--- NOTE | 2019-04-19 16:09 | REP ---
REASON FOR EXAM: History of bladder carcinoma. COMPARISON EXAMINATION: 03/25/2019. CONTRAST: 100 mL Isovue-370. The liver, spleen, pancreas, adrenal glands and kidneys are unchanged. There is mild intrahepatic ductal dilatation secondary to the patient's post cholecystectomy state There is a nonobstructive calculus in the interpolar region of the right kidney. There is minimal prominence of the intrapancreatic duct. There is no free fluid or free air in the abdomen. The bowel loops and their mesenteries are seen to be within normal limits. There is no evidence of an intraabdominal mass or adenopathy. CT PELVIS: Once again, the urinary bladder is distended. Calcifications and possible slight wall enhancement anterior wall urinary bladder status quo to possibly slightly increased. No pelvic side wall adenopathy has developed. There is no free fluid or free air. The bowel loops are unchanged and within normal limits. Bone window technique throughout the exam shows spinal degenerative changes status quo. Seen in the 10th thoracic vertebral body on the right posteriorly there is a small 7 mm sized area of decreased density of uncertain etiology. This is stable. IMPRESSION:1. No significant change from the prior exam. There is no evidence of acute intraabdominal or intrapelvic disease. There are changes involving the anterior urinary bladder wall as described above with urinary bladder distension all essentially unchanged. There is intrahepatic ductal dilatation which is unchanged and likely secondary to the patients post cholecystectomy state. There is a prominent intrapancreatic duct but it too is stable. 2. There is an area of decreased density seen in the 10th thoracic vertebral body on the right as described above of uncertain etiology. It too is unchanged. I would suggest followup with MRI since the patient has a history of carcinoma. There is an unchanged and nonobstructing right nephrolith. Other findings as described above. Electronically Signed by Mikal Turner DO 04/19/2019 04:21 P
== END ==
LOC: M RAD 14:58
PROVIDERS: ATTEND Urology
DX: C67.9 Malignant neoplasm of bladder, unspecified (principal); R91.8 Other nonspecific abnormal finding of lung field
CPT/HCPCS: 36415; 71260; 74177; 80048; Q9967

== ENCOUNTER → 2019-04-19 | Outpatient (CLI) | payer MEDICARE, BC, OTHER ==
[~2019-04-19] MED LIST changes: -ISOVUE-370 76% 100ML VIAL (Q9967) As Ordered ONE
[2019-04-19 11:46] LABS: BLOOD UREA NITROGEN 21 MG/DL (7-18); CALCIUM LEVEL 8.6 MG/DL (8.8-10.2); CARBON DIOXIDE LEVEL 30 MEQ/L (21-32); CHLORIDE LEVEL 98 MEQ/L (98-107); CREATININE FOR GFR 0.76 MG/DL (0.55-1.30); GLOMERULAR FILTRATION RATE > 60.0 (>45); GLUCOSE, FASTING 134 MG/DL (70-100); POTASSIUM SERUM 3.5 MEQ/L (3.5-5.1); SODIUM LEVEL 138 MEQ/L (136-145)
== END ==
LOC: M LAB 09:46
PROVIDERS: ATTEND Urology
DX: C67.9 Malignant neoplasm of bladder, unspecified (principal)

== ENCOUNTER → 2019-05-20 | Outpatient (CLI) | payer MEDICARE, BC, OTHER ==
--- NOTE | 2019-05-25 00:29 | ECHO ---
DATE OF PROCEDURE: 05/20/2019 DATE OF ; 1955 AGE: 64 REFERRING PHYSICIAN: Dr. Zandra Ye PATIENT LOCATION: Outpatient REASON FOR THE ECHOCARDIOGRAM: Shortness of breath. 2D MEASUREMENTS: IVS: 0.7 cm LV: 5.2 cm LVPW: 0.7 cm LA: 3.0 cm Aorta: 2.9 cm RV: 2.0 cm DOPPLER MEASUREMENTS: Peak velocity across the aortic valve: 1.6 m/s Peak velocity across the LVOT: 0.92 m/s Mitral E: 0.66, Mitral A: 0.77 with a ratio of 0.9 2D COMMENTS: 1. Normal left ventricular size, wall thickness, and normal global left ventricular systolic function. The estimated left ventricular systolic ejection fraction is 60-65%. 2. Normal left atrium. Normal right atrium and right ventricle. 3. The atrial septum appeared to be normal without evidence of defect or shunt. 4. Normal aortic root. 5. No pericardial effusion seen. 6. Minimally calcified aortic valve with normal leaflet excursion. Normal mitral valve, tricuspid valve, and pulmonic valve. The proximal pulmonary artery branches also appear to be normal. 7. The inferior vena cava was normal in size, central venous pressure is most likely normal. DOPPLER: It detects trace aortic regurgitation and trace pulmonic regurgitation. No significant tricuspid regurgitation detected, pulmonary artery systolic pressure was not calculated. Abnormal relaxation pattern was noted across the mitral valve leaflets as well as the mitral valve annulus consistent with features of grade 1 left ventricular diastolic dysfunction. IMPRESSION: 1. Normal global left ventricular systolic function. There are some features of left ventricular diastolic dysfunction manifested by abnormal relaxation. 2. Aortic valve sclerosis with trace aortic regurgitation but no aortic stenosis. 3. Trace pulmonic regurgitation.
== END ==
LOC: M CARPUL 08:24
PROVIDERS: ATTEND Internal Medicine Medical Oncology
DX: R06.02 Shortness of breath (principal)

== ENCOUNTER → 2019-06-07 | Outpatient (CLI) | payer MEDICARE, BC, OTHER ==
[2019-06-07 11:03] LABS: HEMATOCRIT 27.5 % (36.0-47.0); HEMOGLOBIN 8.8 g/dl (12.0-15.5); MEAN CORPUSCULAR HEMOGLOBIN 31.5 pg (27.0-33.0); MEAN CORPUSCULAR VOLUME 98.6 fl (80.0-96.0); PLATELET COUNT, AUTOMATED 223 10^3/uL (150-450); RED BLOOD COUNT 2.79 10^6/uL (4.00-5.40); WHITE BLOOD COUNT 4.5 10^3/uL (4.0-10.0)
[2019-06-07 11:34] LABS: ALBUMIN 3.3 GM/DL (3.2-5.2); ALT/SGPT 17 U/L (12-78); BILIRUBIN,TOTAL 0.2 MG/DL (0.2-1.0); BLOOD UREA NITROGEN 12 MG/DL (7-18); CALCIUM LEVEL 8.8 MG/DL (8.8-10.2); CARBON DIOXIDE LEVEL 28 MEQ/L (21-32); CHLORIDE LEVEL 103 MEQ/L (98-107); CREATININE FOR GFR 0.96 MG/DL (0.55-1.30); GLOMERULAR FILTRATION RATE > 60.0 (>45); GLUCOSE, FASTING 141 MG/DL (70-100); POTASSIUM SERUM 4.2 MEQ/L (3.5-5.1); SODIUM LEVEL 139 MEQ/L (136-145)
== END ==
LOC: M LAB 10:30
PROVIDERS: ATTEND Urology
DX: C67.5 Malignant neoplasm of bladder neck (principal)

== ENCOUNTER → 2019-06-23 | Outpatient (CLI) | payer MEDICARE, BC, OTHER ==
[~2019-06-23] MED LIST changes: +ENOX40IN3; +ENOX80IN3 SC; +GASTROGRAFIN SOLUTION 30ML (Q9963) As Ordered ONE; +ISOVUE-370 76% 100ML VIAL (Q9967) As Ordered ONE; +SULF1TAB93 PO
--- NOTE | 2019-06-23 13:47 | REP ---
CT CHEST WITH IV CONTRAST: TECHNIQUE: Axial contrast enhanced images from the thoracic inlet to the upper abdomen using 100 mL Isovue 370 intravenous contrast material with multiplanar reformations. There is no evidence of significant mediastinal, hilar or chest wall lymphadenopathy. Thoracic aorta is normal in caliber with no aneurysm. Intravenous contrast injection timing results in somewhat poor contrast filling of the pulmonary arterial system. However, there is a possible filling defect in one of the right lower lobe pulmonary arterial branches, which would be compatible with a small pulmonary embolism. The heart is normal in size. There is no pleural or pericardial effusion. Dependent bibasilar fibroatelectatic changes are again noted with mild elevation of the left hemidiaphragm, unchanged. There are degenerative changes of the spine. IMPRESSION: Intravenous contrast injection timing results in somewhat poor contrast filling of the pulmonary arterial system. However, there is a possible filling defect in one of the right lower lobe pulmonary arterial branches, which would be compatible with a small pulmonary embolism. Otherwise, stable CT of the chest . There is stable bibasilar fibroatelectatic change. No adenopathy. No pleural or pericardial effusion. Thoracic aorta intact. Electronically Signed by Yusuf Retana MD 06/23/2019 02:05 P
--- NOTE | 2019-06-23 14:13 | REP ---
CT ABDOMEN AND PELVIS WITH ORAL AND IV CONTRAST: TECHNIQUE: Axial contrast enhanced images from the lung bases to the pubic symphysis using 100 mL Isovue 370 intravenous contrast material with multiplanar reformations. Comparison made with prior study of 04/19/2019. The liver demonstrates no mass. The patient has had a prior cholecystectomy. There is mildly prominent common bile duct, unchanged. There is a small amount of biliary air present. The spleen is normal in size with no intrinsic abnormality. The adrenals and pancreas are unremarkable. There is mild bilateral hydronephrosis. Intrarenal calculus is again seen in the lower pole of the right kidney. There are bilateral ureteral stents which traverse into a right abdominal wall urostomy. The urinary bladder has been resected. There is no abdominal aortic aneurysm. There is no adenopathy. There is no free air or free fluid. There is no bowel wall thickening. Please note that in the visualized lung bases there is a suggestion of a filling defect and mild expansion of a branch of the right lower lobe pulmonary artery. This suggests a small pulmonary embolism. In the left common femoral vein there is internal hypodensity and apparent filling defects suggesting partial thrombosis of the left common femoral vein. IMPRESSION: Possible focal small pulmonary embolism in a pulmonary arterial branch of the right lower lobe. Also possible partial deep vein thrombosis of the left common femoral vein. The patient appears to have had a cystectomy. There is mild bilateral hydronephrosis. There are bilateral ureteral stents which traverse into a right abdominal wall urostomy. There is no free air or free fluid. Electronically Signed by Yusuf Retana MD 06/23/2019 05:45 P
== END ==
LOC: M RAD 10:52
PROVIDERS: ATTEND Internal Medicine Medical Oncology
DX: R00.0 Tachycardia, unspecified (principal)

== ENCOUNTER → 2019-07-13 | Outpatient (CLI) | payer MEDICARE, BC, OTHER ==
[~2019-07-13] MED LIST changes: -GASTROGRAFIN SOLUTION 30ML (Q9963) As Ordered ONE; -ISOVUE-370 76% 100ML VIAL (Q9967) As Ordered ONE
[2019-07-13 15:22] LABS: HEMOGLOBIN 9.4 g/dl (12.0-15.5); MEAN CORPUSCULAR HEMOGLOBIN 31.2 pg (27.0-33.0); MEAN CORPUSCULAR HGB CONC 32.4 g/dl (32.0-36.5); MEAN CORPUSCULAR VOLUME 96.3 fl (80.0-96.0); PLATELET COUNT, AUTOMATED 306 10^3/uL (150-450); RED BLOOD COUNT 3.01 10^6/uL (4.00-5.40); WHITE BLOOD COUNT 3.8 10^3/uL (4.0-10.0)
[2019-07-13 15:59] LABS: ALBUMIN 3.5 GM/DL (3.2-5.2); ALT/SGPT 11 U/L (12-78); BILIRUBIN,TOTAL 0.2 MG/DL (0.2-1.0); BLOOD UREA NITROGEN 13 MG/DL (7-18); CALCIUM LEVEL 9.6 MG/DL (8.8-10.2); CARBON DIOXIDE LEVEL 27 MEQ/L (21-32); CHLORIDE LEVEL 105 MEQ/L (98-107); CREATININE FOR GFR 0.79 MG/DL (0.55-1.30); GLOMERULAR FILTRATION RATE > 60.0 (>45); GLUCOSE, FASTING 116 MG/DL (70-100); POTASSIUM SERUM 4.1 MEQ/L (3.5-5.1); SODIUM LEVEL 140 MEQ/L (136-145); TOTAL PROTEIN 7.3 GM/DL (6.4-8.2)
== END ==
LOC: M LAB 14:37
PROVIDERS: ATTEND Urology
DX: C67.5 Malignant neoplasm of bladder neck (principal)

== ENCOUNTER → 2019-07-18 | Outpatient (CLI) | payer MEDICARE, BC, OTHER ==
[~2019-07-18] MED LIST changes: +ISOVUE-370 76% 100ML VIAL (Q9967) As Ordered ONE
--- NOTE | 2019-07-18 11:21 | REP ---
CT of the abdomen pelvis without and with contrast, CT urogram protocol: Comparison is 06/23/2019. Imaging is initially performed without IV contrast. After IV contrast dual phase imaging is performed initially during the renal cortical phase of enhancement and later during the renal excretion phase of enhancement. The patient has had a cystectomy and ileal loop urostomy. The visualized lower lung esteban are unremarkable except for minor discoid atelectasis. The hepatic parenchyma is homogeneous on all phases of the study. There are surgical clips in the gallbladder fossa. This is unchanged. On the prior study there was pneumobilia. This is no longer present. The pancreas and spleen are unremarkable. There is a nonobstructive right renal 5 mm calculus at the lower pole. This is unchanged. There are no left renal calculi. There are no renal solid masses or cysts. The previous hydronephrosis has resolved. The previous bilateral ureteral stents have been removed. There is no perinephric stranding. The ureters are opacified to the ileal conduit. There is no hydroureter. The bladder is surgically absent. There is no periaortic or mesenteric adenopathy. Pelvis: There are a 9 mm and 7 mm right femoral nodes measuring a short axis , borderline enlarged on images 103 and 108. There is an 11 mm node measuring a short axis in the left femoral area on image 104. No other pelvic adenopathy is identified. There is no ascites. There is no evidence of tumor recurrence by CT there are multiple bowel loops inferiorly in the pelvis. There are no lytic, blastic or destructive skeletal changes. There is facet osteoarthritis throughout the lumbar spine. Impression: The bilateral ureteral stents have been removed. The previous hydronephrosis has resolved. There is no periaortic or mesenteric adenopathy. There is bilateral pelvic femoral adenopathy as described. There is no ascites. The previous pneumobilia has resolved. There is a nonobstructive right renal calculus as described, unchanged. Electronically Signed by Yusuf Rowe MD 07/18/2019 11:11 A
== END ==
LOC: M RAD 08:52
PROVIDERS: ATTEND Urology
DX: C67.9 Malignant neoplasm of bladder, unspecified (principal); N20.0 Calculus of kidney
CPT/HCPCS: 74178; Q9967

== ENCOUNTER → 2019-12-12 | Outpatient (CLI) | payer MEDICARE, BC, OTHER ==
[~2019-12-12] MED LIST changes: +ENOX120I3 SC; +GASTROGRAFIN SOLUTION 30ML (Q9963) As Ordered ONE; +GLYCCAP PO; +ONDA8TAB10 PO; -ONDA8TAB7 PO; +XARE15TA PO
--- NOTE | 2019-12-12 19:17 | REP ---
CT chest with IV contrast: History: Bladder cancer. Comparison study: June 23, 2019. CT contrast dose: 100 ml of intravenous Isovue [address] findings: There is no evidence of pulmonary embolism. No evidence of thoracic aneurysm or dissection is seen. Normal adrenals. Visualized upper abdominal structures are unremarkable. No hilar or mediastinal mass or adenopathy is observed. There is a right-sided Lznfot-B-Belv catheter. The lung esteban show minimal linear fibrosis in the left lower lobe. No pulmonary nodule or mass lesion is observed. No bony destructive lesion is appreciated. Impression: No acute disease. Electronically Signed by Marco Antonio Pitts MD 12/12/2019 09:18 P
--- NOTE | 2019-12-13 07:32 | REP ---
CT abdomen and pelvis with IV and oral contrast: History: Bladder cancer for follow-up. On chemotherapy. Status post cystectomy and urostomy. Comparison CT study is from July 18, 2019. CT contrast dose: 100 ml of intravenous Isovue 370. CT findings: The gallbladder is surgically absent. No focal liver lesion is seen. The spleen is unremarkable. No adrenal abnormalities observed. No abnormalities noted in the pancreas. There is a descending duodenal diverticulum. Common bile duct measures 9 mm in greatest diameter unchanged from the comparison study. Right lower quadrant enterostomy for urinary diversion again seen unchanged. Urinary bladder is removed. There are subcutaneous nodules in the anterior abdominal wall consistent with injection sites. The kidneys enhance symmetrically and are morphologically intact. No retroperitoneal mass or adenopathy is observed. Bone window settings show no bony destructive lesion. Impression: No evidence of intra-abdominal mass or adenopathy. Status post cholecystectomy and cystectomy with right lower quadrant urostomy. Electronically Signed by Marco Antonio Pitts MD 12/13/2019 07:53 A
== END ==
LOC: M RAD 09:00
PROVIDERS: ATTEND Internal Medicine Medical Oncology
DX: C67.9 Malignant neoplasm of bladder, unspecified (principal); Z93.6 Other artificial openings of urinary tract status; Z90.6 Acquired absence of other parts of urinary tract; Z95.828 Presence of other vascular implants and grafts
CPT/HCPCS: 71260; 74177; Q9963; Q9967

== ENCOUNTER → 2020-01-09 | Outpatient (CLI) | payer MEDICARE, BC, OTHER ==
[~2020-01-09] MED LIST changes: -GASTROGRAFIN SOLUTION 30ML (Q9963) As Ordered ONE; -ISOVUE-370 76% 100ML VIAL (Q9967) As Ordered ONE; +LIDOCAINE 1% MDV 20ML VIAL As Ordered ONE; +MIDAZOLAM INJ 2 MG/2 ML VIAL (J2250) As Ordered ONE; +diphenhydrAMINE INJ 50MG/ML VIAL (J1200) As Ordered ONE; +fentaNYL 100 MCG/2 ML INJECTION (J3010) As Ordered ONE
--- NOTE | 2020-01-09 14:24 | IRHP ---
[facility] IR Pre-Procedure H & P General Date of Service: Jan 09, 2020 Procedure: Same Day Surgery Interval History and Physical I have seen the patient and reviewed last H & P performed within 30 days. There is no significant interval change. History of Present Illness Chief Complaint The patient is a 64-year-old female admitted with a reason for visit of Bladder Ca, No Longer Needed. PRE-PROCEDURE DIAGNOSIS: urothelial ca HEART: normal rate. LUNGS: normal breathing at rest. ASA Classification ASA Classification: III-Severe systemic dis. Mallampati Score: II NPO: Yes Problems with prior sedation: No Obstructive Sleep Apnea: No Plan moderate sedation Allergies Coded Allergies: No Known Allergies (Unverified , 01/06/19) Home Medications Scheduled Buspirone HCl (Buspirone HCl), 5 MG PO BID, (Reported) Multivit-Minerals/Folic/Ginkgo (One Daily For Women 50+ Adv Tb), 1 TAB PO DAILY, (Reported) Rivaroxaban (Xarelto), 15 MG PO BID Rivaroxaban (Xarelto), 1 TAB PO DAILY Vit B12/Folic Acid/B6/Aa No.15 (Glycotrol Capsule), Unknown Dose PO DAILY, (Reported) Discontinued Medications Enoxaparin Sodium (Enoxaparin Sodium), 80 MG SC BID Discontinued Reason: Pt states not taking VS, I&O, 24H, Fishbone Vital Signs/I&O Vital Signs Date Time Temp Pulse Resp B/P (MAP) Pulse Ox O2 Delivery O2 Flow Rate FiO2 01/09/20 13:55 98.8 111 18 97 Room Air BERTO ARELLANO MD Jan 09, 2020 14:24
--- NOTE | 2020-01-09 15:41 | POST-OPPD ---
Postoperative Procedure Note Date Of Procedure: Jan 09, 2020 Time Of Procedure: 15:40 PREOPERATIVE DIAGNOSIS: urothelial cancer. treatment completed POSTOPERATIVE DIAGNOSIS: same FINDINGS: right sided port in place PROCEDURE: right sided port removal SURGEON: magaly ANESTHESIA: mod sed ESTIMATED BLOOD LOSS: < 5 ml COMPLICATIONS: none POSTOPERATIVE CONDITION: stable BERTO ARELLANO MD Jan 09, 2020 15:41
--- NOTE | 2020-01-09 16:03 | ECGEPIP ---
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
--- NOTE | 2020-01-09 16:03 | IRPN ---
[facility] IR Progress Note IR Progress Note DATE: Jan 09, 2020 Patient has baseline sinus tachycardia but demonstrated wide complex tachycardia during case. This was asymptomatic and without hypotension. This reverted spontaneously and may have been related to sedation medication. She remains completely asymptomatic and hemodynamically stable. She is to follow up with her PCP Dr. John hedrick tomorrow, we have given her the rhythm strip obtained during the case as well as her 12 lead EKG obtained after the case for his review. Allergies Coded Allergies: No Known Allergies (Unverified , 01/06/19) VS,Fishbone, I+O VS, Fishbone, I+O Vital Signs Date Time Temp Pulse Resp B/P (MAP) Pulse Ox O2 Delivery O2 Flow Rate FiO2 01/09/20 15:51 97 16 95 Room Air 01/09/20 15:26 2 01/09/20 13:55 98.8 BERTO ARELLANO MD Jan 09, 2020 16:03
[2020-01-09 17:35] VITALS: BP 116/62
--- NOTE | 2020-01-10 09:27 | REP ---
IR port removal. IR moderate sedation. Clinical information: Bladder cancer. Treatment complete. Physician: Dr. Muniz. Procedure: The patient was advised of the benefits, risks and alternatives of the procedure and informed consent was obtained. The time-out was performed with verification of the patient's name, MRN, site of procedure and type of procedure to be performed. The patient was positioned in the supine position on the angiographic table. The site was prepped and draped in the usual sterile fashion. Moderate sedation was performed by the physician including the presence of an independent trained observer who assisted and monitored the patient's level of consciousness and physiologic status. Following the administration of fentanyl and Versed, the physician spent 45 minutes of continuous face to face time with the patient. A booking prizer radiograph reveals a right-sided port in place. The soft tissues overlying the port pocket were anesthetized with lidocaine. An incision was made over the port using an 15 blade scalpel in the location of the prior incision. The catheter was then freed with blunt dissection and extracted. Pressure was applied to obtain hemostasis. The port was then freed with blunt dissection and subsequently removed. There are no signs of infection. After hemostasis was achieved, the incision was closed with interrupted deep 2-0 Vicryl sutures and subcuticular Monocryl sutures. The site was cleansed and covered with a sterile dressing. A follow-up radiograph demonstrates complete removal of the port. The patient tolerated the procedure well and was returned to PRU in stable condition. EBL: < 5 ml. Complications: None. Conclusion: 1. Successful explant of a right sided port. 2. No signs of infection. 3. Patient has baseline sinus tachycardia. However, it was noted the patient had a wide complex tachycardia during the procedure which reverted spontaneously and was completely asymptomatic. The patient was given a copy of the rhythm strip as well as the EKG obtained post procedure and advised to follow up with Dr. John Lai tomorrow for further cardiac work up and/or Holter monitoring if appropriate . Thank you this referral. Cc Dr. Zandra Penn. Cc Dr. John Lai. Electronically Signed by Pao Muniz MD 01/10/2020 09:25 A
== END ==
LOC: M IRPRO 13:19
PROVIDERS: ATTEND Radiology Diagnostic Radiology
DX: Z45.2 Encounter for adjustment and management of vascular access device (principal); C67.9 Malignant neoplasm of bladder, unspecified
CPT/HCPCS: 36590; 93005; 99152; 99153; J1200; J1644; J2250; J3010

== ENCOUNTER → 2020-04-19 | Outpatient (CLI) | payer MEDICARE, BC ==
[~2020-04-19] MED LIST changes: -LIDOCAINE 1% MDV 20ML VIAL As Ordered ONE; -MIDAZOLAM INJ 2 MG/2 ML VIAL (J2250) As Ordered ONE; +XARE20TA PO; -diphenhydrAMINE INJ 50MG/ML VIAL (J1200) As Ordered ONE; -fentaNYL 100 MCG/2 ML INJECTION (J3010) As Ordered ONE
--- NOTE | 2020-04-19 13:29 | REPMRS ---
Patient History The patient states she has not had a clinical breast exam in over a year. Patient is postmenopausal, has history of bladder cancer at age 64, and had previous chemotherapy at age 64. Family history of colorectal cancer at age 50 or over in mother. Benign stereotactic core biopsy of the left breast, 1993. Infusaport scar on right Digital Woman Screen Mammo: April 19, 2020 - Exam #: [id number] Bilateral CC and MLO view(s) were taken. Technologist: Vernell Virk, Technologist Prior study comparison: March 16, 2018, digital woman screen mammo performed at [facility]. March 09, 2017, digital woman screen mammo performed at [facility]. February 15, 2016, digital bilateral screening mammo, performed at [facility]. FINDINGS: There are scattered fibroglandular densities. The Volpara volumetric breast density category is:B. There has been no change in the appearance of the mammogram from the prior studies. There is a mild amount of scattered fibroglandular density which is fairly symmetric. There is no interval development of dominant mass, architectural distortion, or grouped microcalcification suggestive of malignancy. 3-D tomosynthesis shows no additional findings. Assessment: BI-RADS/ACR category 1 mammogram. Negative Mammogram. Recommendation Routine screening mammogram of both breasts in 1 year (for women over age 40). This patient's Lifetime Breast Cancer Risk is estimated at 5.9 %. This mammogram was interpreted with the aid of an FDA-approved computer-aided dectection system. Electronically Signed By: Héctor Pitts MD 04/19/20 [id number]
== END ==
LOC: M WHC 12:39
PROVIDERS: ATTEND Internal Medicine
DX: Z12.31 Encounter for screening mammogram for malignant neoplasm of breast (principal)

== ENCOUNTER → 2020-05-29 | Outpatient (CLI) | payer MEDICARE, BC, OTHER ==
[~2020-05-29] MED LIST changes: +GASTROGRAFIN SOLUTION 30ML (Q9963) As Ordered ONE; +ISOVUE-370 76% 100ML VIAL As Ordered ONE
--- NOTE | 2020-05-29 13:05 | REP ---
Clinical: Bladder cancer. Restaging. Technique: Axial contrast enhanced images from the thoracic inlet to the upper abdomen (followed by CT of the abdomen and pelvis) using 100 ml Isovue 370 intravenous contrast material with coronal and sagittal re-formations. Comparison: 12/12/2019. Findings: Minimal bibasilar fibroatelectatic changes (left greater than right) again noted and relatively stable. No focal consolidation, obvious nodule or mass lesion. No pleural effusion or pneumothorax. Tracheobronchial tree is patent. No significant adenopathy. Mediastinum demonstrates stable appearance to the thoracic aorta, pulmonary vasculature and heart/pericardium. Surrounding musculoskeletal structures are intact without obvious focal osseous abnormality. Impression: Minimal stable bibasilar fibroatelectatic changes. No acute mediastinal or pleuroparenchymal process. No evidence for metastatic disease. Electronically Signed by Sean Lazar MD 05/29/2020 12:56 P
--- NOTE | 2020-05-29 13:09 | REP ---
Clinical: Bladder cancer. Restaging. Technique: Axial contrast enhanced images from the lung bases to the pubic symphysis using oral (per protocol) and 100 ml Isovue 370 intravenous contrast material with coronal and sagittal re-formations. Comparison: 12/12/2019. Findings: Evidence of prior cholecystectomy, and the liver demonstrates small amount of pneumobilia without focal hepatic lesion identified. Spleen, pancreas, bilateral adrenal glands and kidneys are normal. The patient is noted to be status post bladder resection with ileal conduit and urostomy via the right anterior abdominal wall. There is no associated hydronephrosis. Evaluation of the enteric system is without obstruction or acute inflammatory process. Pelvis is consistent with prior bladder resection and hysterectomy. No ascites. No free air. No obvious adenopathy. No obvious recurrence or metastatic disease. Osseous structures demonstrate degenerative changes without acute focal abnormality. Impression: 1. Evidence of prior bladder resection with ileal conduit and urostomy. 2. Evidence for prior cholecystectomy and hysterectomy. 3. No acute abdominopelvic pathology appreciated. 4. No ascites, adenopathy, mass or evidence for recurrence/metastatic disease. Electronically Signed by Sean Lazar MD 05/29/2020 01:00 P
== END ==
LOC: M RAD 11:02
PROVIDERS: ATTEND Internal Medicine Medical Oncology
DX: C67.9 Malignant neoplasm of bladder, unspecified (principal)
CPT/HCPCS: 71260; 74177; Q9963; Q9967

== ENCOUNTER → 2020-07-19 | Outpatient (CLI) | payer MEDICARE, BC, OTHER ==
[~2020-07-19] MED LIST changes: +FERR1TAB8 PO; -GASTROGRAFIN SOLUTION 30ML (Q9963) As Ordered ONE; -ISOVUE-370 76% 100ML VIAL As Ordered ONE
[2020-07-19 18:03] LABS: BLOOD UREA NITROGEN 15 MG/DL (7-18); CALCIUM LEVEL 9.5 MG/DL (8.8-10.2); CARBON DIOXIDE LEVEL 31 MEQ/L (21-32); CHLORIDE LEVEL 104 MEQ/L (98-107); CREATININE FOR GFR 0.92 MG/DL (0.55-1.30); GLOMERULAR FILTRATION RATE > 60.0 (>45); GLUCOSE, FASTING 127 MG/DL (70-100); HEMATOCRIT 37.2 % (36.0-47.0); MEAN CORPUSCULAR HEMOGLOBIN 32.3 pg (27.0-33.0); MEAN CORPUSCULAR HGB CONC 32.3 g/dl (32.0-36.5); PLATELET COUNT, AUTOMATED 270 10^3/uL (150-450); RED BLOOD COUNT 3.72 10^6/uL (4.00-5.40); SODIUM LEVEL 139 MEQ/L (136-145)
[2020-07-20 11:52] LABS: VITAMIN B12 LEVEL 810 PG/ML (247-911)
== END ==
LOC: M LAB 15:27
PROVIDERS: ATTEND Urology
DX: C67.9 Malignant neoplasm of bladder, unspecified (principal)

== ENCOUNTER → 2020-08-08 | Outpatient (CLI) | payer MEDICARE, BC, OTHER ==
[2020-08-08 14:53] LABS: HEMATOCRIT 37.2 % (36.0-47.0); HEMOGLOBIN 12.2 g/dl (12.0-15.5); MEAN CORPUSCULAR HGB CONC 32.8 g/dl (32.0-36.5); MEAN CORPUSCULAR VOLUME 100.5 fl (80.0-96.0); PLATELET COUNT, AUTOMATED 267 10^3/uL (150-450); WHITE BLOOD COUNT 6.3 10^3/uL (4.0-10.0)
[2020-08-08 15:14] LABS: BLOOD UREA NITROGEN 15 MG/DL (7-18); CALCIUM LEVEL 9.6 MG/DL (8.8-10.2); CARBON DIOXIDE LEVEL 29 MEQ/L (21-32); CHLORIDE LEVEL 105 MEQ/L (98-107); CREATININE FOR GFR 0.89 MG/DL (0.55-1.30); GLOMERULAR FILTRATION RATE > 60.0 (>45); GLUCOSE, FASTING 110 MG/DL (70-100); POTASSIUM SERUM 3.8 MEQ/L (3.5-5.1); SODIUM LEVEL 139 MEQ/L (136-145)
[2020-08-08 15:25] LABS: VITAMIN B12 LEVEL 790 PG/ML (247-911)
== END ==
LOC: M LAB 13:12
PROVIDERS: ATTEND Urology
DX: C67.9 Malignant neoplasm of bladder, unspecified (principal)

== ENCOUNTER → 2020-11-28 | Outpatient (CLI) | payer MEDICARE, BC, OTHER ==
[~2020-11-28] MED LIST changes: +GASTROGRAFIN SOLUTION 30ML (Q9963) As Ordered ONE; +ISOVUE-370 76% 100ML VIAL As Ordered ONE
--- NOTE | 2020-11-28 11:39 | REP ---
INDICATION: UROTHELIAL CA COMPARISON: 05/29/2020, 12/12/2019, 04/19/2019 TECHNIQUE: Axial contrast enhanced images from the thoracic inlet to the upper abdomen with coronal and sagittal reformations using 100 ml Isovue 370 intravenous contrast material. This CT examination was performed using the following dose reduction techniques: Automated exposure control, adjustment of mA and/or kv according to the patient's size, and use of iterative reconstruction technique. FINDINGS: Lung esteban are relatively well aerated with minimal stable chronic changes at the bilateral bases. No consolidation, suspicious nodule or mass lesion. No pleural effusion. No pneumothorax. Tracheobronchial tree is patent. No axillary, hilar, or mediastinal adenopathy. Mediastinum demonstrates relatively normal thoracic aorta, pulmonary vasculature, and heart/pericardium. Thyroid gland is grossly normal. Musculoskeletal structures are intact IMPRESSION: 1. Essentially normal contrast-enhanced chest CT. Minimal chronic scarring at the bases. 2. No acute mediastinal or pleuroparenchymal process. 3. No evidence for metastatic disease. <Electronically signed by Sean Lazar > 11/28/20 [id number]
--- NOTE | 2020-11-28 12:25 | REP ---
INDICATION: UROTHELIAL CA. COMPARISON: 05/29/2020, 12/12/2019 TECHNIQUE: Axial contrast-enhanced images from the lung bases to the pubic symphysis using oral and 100 cc Isovue 370 intravenous contrast material. Delayed images of the abdomen along with coronal and sagittal reformations obtained. This CT examination was performed using the following dose reduction techniques: Automated exposure control, adjustment of mA and/or kv according to the patient's size, and the use of iterative reconstruction technique. FINDINGS: Patient is noted to be status post bladder resection and urostomy via the right anterior abdominal wall. The kidneys are normal in appearance and symmetric in enhancement without perinephric stranding or hydronephrosis. The ileal conduit/urostomy appears normal. Liver, spleen, pancreas, and bilateral adrenal glands are normal. Evidence for prior cholecystectomy. The enteric system is without obstruction or acute inflammatory process. The pelvis demonstrates prior total hysterectomy and bladder resection. No pelvic fluid or abnormal mass lesions are identified to suggest recurrence or focal metastatic disease. No ascites. No free air. No obvious intraperitoneal or retroperitoneal adenopathy. Abdominal aorta and vasculature without aneurysm or dissection. Osseous structures demonstrate degenerative changes without acute abnormality. IMPRESSION: 1. Prior bladder resection and urostomy. No evidence for recurrence or metastatic disease. 2. No acute abdominopelvic pathology appreciated. <Electronically signed by Sean Lazar > 11/28/20 [id number]
== END ==
LOC: M RAD 09:22
PROVIDERS: ATTEND Internal Medicine Medical Oncology
DX: C67.9 Malignant neoplasm of bladder, unspecified (principal)
CPT/HCPCS: 71260; 74177; Q9963; Q9967

== ENCOUNTER → 2021-03-12 | Outpatient (CLI) | payer MEDICARE, BC, OTHER ==
[~2021-03-12] MED LIST changes: -GASTROGRAFIN SOLUTION 30ML (Q9963) As Ordered ONE; -ISOVUE-370 76% 100ML VIAL As Ordered ONE
[2021-03-12 13:42] LABS: HEMATOCRIT 37.9 % (36.0-47.0); MEAN CORPUSCULAR HEMOGLOBIN 31.8 pg (27.0-33.0); MEAN CORPUSCULAR HGB CONC 31.7 g/dl (32.0-36.5); MEAN CORPUSCULAR VOLUME 100.5 fl (80.0-96.0); PLATELET COUNT, AUTOMATED 258 10^3/uL (150-450); RED BLOOD COUNT 3.77 10^6/uL (4.00-5.40)
[2021-03-12 14:06] LABS: APPEARANCE, URINE CLEAR (CLEAR); BACTERIA, URINE AUTO 3+ (NEGATIVE); BILIRUBIN, URINE AUTO NEGATIVE (NEGATIVE); BLOOD, URINE BLOOD 1+ (NEGATIVE); COLOR, URINE YELLOW (YELLOW); GLUCOSE, URINE (UA) AUTO NEGATIVE (NEGATIVE); KETONE, URINE AUTO NEGATIVE (NEGATIVE); LEUKOCYTE ESTERASE, URINE AUTO TRACE (NEGATIVE); MUCUS, URINE SMALL (NEGATIVE); NITRITE, URINE AUTO NEGATIVE (NEGATIVE); PROTEIN, URINE AUTO NEGATIVE (NEGATIVE); RBC, URINE AUTO 6 /HPF (0-3); SQUAMOUS EPITHELIAL CELL UR AU 0 /HPF (0-6); UROBILINOGEN, URINE AUTO 0.2 mg/dL (0.0-2.0); WBC, URINE AUTO 24 /HPF (0-3)
[2021-03-12 14:11] LABS: BLOOD UREA NITROGEN 19 MG/DL (7-18); CALCIUM LEVEL 10.2 MG/DL (8.8-10.2); CARBON DIOXIDE LEVEL 31 MEQ/L (21-32); CHLORIDE LEVEL 103 MEQ/L (98-107); CREATININE FOR GFR 0.81 MG/DL (0.55-1.30); GLOMERULAR FILTRATION RATE > 60.0 (>45); GLUCOSE, FASTING 109 MG/DL (70-100); POTASSIUM SERUM 4.1 MEQ/L (3.5-5.1); SODIUM LEVEL 138 MEQ/L (136-145)
[2021-03-12 14:22] LABS: VITAMIN B12 LEVEL 817 PG/ML (247-911)
== END ==
LOC: M LAB 11:46
PROVIDERS: ATTEND Urology
DX: C67.9 Malignant neoplasm of bladder, unspecified (principal)

== ENCOUNTER → 2021-04-16 | Outpatient (CLI) | payer MEDICARE, BC, OTHER ==
[~2021-04-16] MED LIST changes: +BACTDSTA PO; +GASTROGRAFIN SOLUTION 30ML (Q9963) As Ordered ONE; +ISOVUE-370 76% 100ML VIAL As Ordered ONE; -SULF1TAB93 PO
--- NOTE | 2021-04-16 17:50 | REP ---
INDICATION: BLADDER CA. COMPARISON: Comparison CT study is from a November 28, 2020.. TECHNIQUE: Helical scanning is acquired following the intravenous injection of 100 cc of fat Isovue 370. 3 mm axial images re-formatted. Coronal and sagittal MPR images are generated. FINDINGS: Linear fibrosis is again noted in the left lower lobe and to a lesser extent right lower lobe unchanged. No pleural or pericardial effusion is seen. No pulmonary mass or nodule as developed. There is good opacification of the pulmonary arterial tree and the thoracic aorta. No vascular defect is appreciated. No hilar or mediastinal mass or adenopathy is observed. No pericardial effusion or pleural effusion is seen. The gallbladder is surgically absent. Normal adrenal glands are seen. The visualized upper abdominal structures are otherwise unremarkable. No extra thoracic mass or adenopathy is seen. No bony destructive lesion is appreciated. IMPRESSION: Bibasilar linear fibrosis. No active cardiopulmonary disease. <Electronically signed by Héctor Pitts > 04/16/21 [id number]
--- NOTE | 2021-04-16 17:54 | REP ---
INDICATION: BLADDER CA. COMPARISON: Comparison CT study is from November 28, 2020.. TECHNIQUE: Helical scanning is acquired and 3 mm axial images re-formatted. Coronal and sagittal MPR images are generated. The CT contrast enhancement dose is 100 mL of intravenous Isovue 370. FINDINGS: Preliminary digital shellfish checker radiograph demonstrates an unremarkable bowel gas pattern. There are clips in right upper quadrant of the abdomen. The liver and the spleen are normal in size homogeneous in texture. There is a small hepatic cyst in the right lobe under a cm in diameter unchanged. No adrenal lesion is seen. No abnormality is noted in the pancreas. Kidneys enhance symmetrically and are morphologically intact. No renal mass or hydronephrosis is seen. Urinary bladder is surgically absent and a right lower quadrant urinary ileostomy is seen. There is a small parastomal hernia trans Ma abdominal fat and a loop of ileum. This is unchanged. No other abdominal wall defect is observed. No pelvic mass or adenopathy is seen. No retroperitoneal adenopathy is observed. Normal caliber aorta. Small and large bowel loops are unremarkable in the abdomen and pelvis. Bone window settings show no bony destructive lesion. 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 IMPRESSION: Status post cystectomy and urinary diversion ileostomy. Small parastomal hernia unchanged. No evidence of mass or adenopathy. <Electronically signed by Héctor Pitts > 04/16/21 [id number]
== END ==
LOC: M RAD 15:15
PROVIDERS: ATTEND Internal Medicine Medical Oncology
DX: J84.10 Pulmonary fibrosis, unspecified (principal); K43.5 Parastomal hernia without obstruction or gangrene; Z93.6 Other artificial openings of urinary tract status; K76.89 Other specified diseases of liver; M47.9 Spondylosis, unspecified; M16.0 Bilateral primary osteoarthritis of hip
CPT/HCPCS: 71260; 74177; Q9963; Q9967

== ENCOUNTER → 2021-06-14 | Outpatient (CLI) | payer MEDICARE, BC ==
[~2021-06-14] MED LIST changes: -GASTROGRAFIN SOLUTION 30ML (Q9963) As Ordered ONE; -ISOVUE-370 76% 100ML VIAL As Ordered ONE; -OLAN10TA2 PO; +OLAN1TAB20 PO; +XARE10TA PO
--- NOTE | 2021-06-14 09:19 | REPMRS ---
Patient History The patient states she has not had a clinical breast exam in over a year. Family history of colorectal cancer at age 50 or over in mother. Benign stereotactic core biopsy of the left breast, 1993. 10 lb unintentional weight gain. Moderna vaccine 01/26/21 left arm, 02/03/21 left arm. Patient states no breast complaints today. Patient has signed MRS History Sheet. Digital Woman Screen Mammo: June 14, 2021 - Exam #: [id number] Bilateral CC and MLO view(s) were taken. Technologist: RT Sarahi Prior study comparison: April 19, 2020, bilateral digital woman screen mammo performed at [facility]. March 16, 2018, digital woman screen mammo performed at [facility]. FINDINGS: The breast tissue is almost entirely fat. Screening. Digital screening (2D) mammography was performed bilaterally in the CC and MLO projections. Additionally, breast tomosynthesis (3D mammography) was performed bilaterally in the CC and MLO projections. Todays exam was compared to the prior exam/exams. By history, the patient has no complaints of a palpable breast abnormality or other significant breast complaints. The breasts are unchanged in size and shape. There are no rosanna-soft tissue densities or spiculated masses. There is no internal architectural distortion. There are no suspicious rosanna-calcific clusters. Skin thickening or nipple retraction is not present. IMPRESSION: BI-RADS Category 2- Benign Findings. There is no evidence of malignant alteration of the breasts. Followup examination recommended in one year. The Volpara volumetric breast density category is A, the breasts are almost entirely fatty. This mammogram was read with the assistance of [facility] [employer] [facility],an FDA approved computer aided detection system for mammography. The lifetime Tyrer-Cuzick score is 5.6 % Negative x-ray reports should not delay surgical consultation if a dominant or clinically suspicious mass is present. Not all breast cancers can be identified by mammography. Therefore, we recommend that you continue to perform regular breast self-examination and physical examination and then promptly contact your physician of any concerns or changes. Adenosis and dense breasts may obscure an underlying neoplasm. Assessment: BI-RADS/ACR category 2 mammogram. Benign Findings. Recommendation Routine screening mammogram of both breasts in 1 year. Electronically Signed By: Mikal Turner, 06/14/21 0918
== END ==
LOC: M WHC 08:21
PROVIDERS: ATTEND Internal Medicine
DX: Z12.31 Encounter for screening mammogram for malignant neoplasm of breast (principal); Z80.0 Family history of malignant neoplasm of digestive organs; Z86.018 Personal history of other benign neoplasm

== ENCOUNTER → 2021-10-16 | Outpatient (CLI) | payer MEDICARE, BC ==
[2021-10-16 16:10] LABS: HEMATOCRIT 37.7 % (36.0-47.0); HEMOGLOBIN 12.5 g/dl (12.0-15.5); MEAN CORPUSCULAR HEMOGLOBIN 32.7 pg (27.0-33.0); MEAN CORPUSCULAR HGB CONC 33.2 g/dl (32.0-36.5); MEAN CORPUSCULAR VOLUME 98.7 fl (80.0-96.0); PLATELET COUNT, AUTOMATED 278 10^3/uL (150-450); RED BLOOD COUNT 3.82 10^6/uL (4.00-5.40); WHITE BLOOD COUNT 5.2 10^3/uL (4.0-10.0)
[2021-10-16 16:32] LABS: BLOOD UREA NITROGEN 18 MG/DL (7-18); CALCIUM LEVEL 9.6 MG/DL (8.8-10.2); CARBON DIOXIDE LEVEL 28 MEQ/L (21-32); CHLORIDE LEVEL 103 MEQ/L (98-107); CREATININE FOR GFR 0.92 MG/DL (0.55-1.30); GLOMERULAR FILTRATION RATE > 60.0 (>45); GLUCOSE, FASTING 112 MG/DL (70-100); POTASSIUM SERUM 4.3 MEQ/L (3.5-5.1); SODIUM LEVEL 138 MEQ/L (136-145)
[2021-10-16 16:43] LABS: VITAMIN B12 LEVEL 876 PG/ML (247-911)
== END ==
LOC: M WUC 11:49
PROVIDERS: ATTEND Urology
DX: C67.9 Malignant neoplasm of bladder, unspecified (principal)

== ENCOUNTER → 2021-11-01 | Outpatient (CLI) | payer MEDICARE, BC, OTHER ==
[~2021-11-01] MED LIST changes: +ISOVUE-370 76% 100ML VIAL As Ordered ONE
--- NOTE | 2021-11-01 13:41 | REP ---
INDICATION: BLADDER CA. COMPARISON: Multiple the latest 04/16/2021 TECHNIQUE: Standard helical technique after the intravenous administration of 100 cc Isovue 370 FINDINGS: The lung bases are unchanged. The liver, spleen, pancreas, adrenal glands, and kidneys are unchanged. The abdominal aorta and para-aortic regions are unchanged. Bowel loops and the mesenteries are unchanged. There is no mass or adenopathy. There is no free fluid or free air. The patient is status post cystectomy with diversion ileostomy status quo. Bone window technique throughout the examination shows no significant change in appearance of the osseous structures. IMPRESSION: Stable exam showing no evidence of acute disease or significant change. Small bilateral nonenlarged pelvic sidewall lymph nodes are noted status quo. <Electronically signed by Mikal Turner > 11/01/21 [id number]
== END ==
LOC: M RAD 10:25
PROVIDERS: ATTEND Urology
DX: C67.9 Malignant neoplasm of bladder, unspecified (principal); N89.8 Other specified noninflammatory disorders of vagina
CPT/HCPCS: 74177; Q9967

== ENCOUNTER → 2022-05-05 | Outpatient (CLI) | payer MEDICARE, BC, OTHER ==
[~2022-05-05] MED LIST changes: -ISOVUE-370 76% 100ML VIAL As Ordered ONE; -LEVO500T3 PO; +LEVO500T4 PO; +ONDA-84 PO; -ONDA8TAB10 PO; -PROC10TA4 PO; +PROC10TA5 PO
[2022-05-05 12:31] LABS: HEMATOCRIT 38.9 % (36.0-47.0); HEMOGLOBIN 12.9 g/dl (12.0-15.5); MEAN CORPUSCULAR HEMOGLOBIN 32.2 pg (27.0-33.0); MEAN CORPUSCULAR HGB CONC 33.2 g/dl (32.0-36.5); PLATELET COUNT, AUTOMATED 247 10^3/uL (150-450); RED BLOOD COUNT 4.01 10^6/uL (4.00-5.40); WHITE BLOOD COUNT 5.5 10^3/uL (4.0-10.0)
[2022-05-05 13:01] LABS: BLOOD UREA NITROGEN 16 MG/DL (7-18); CALCIUM LEVEL 10.3 MG/DL (8.8-10.2); CARBON DIOXIDE LEVEL 28 MEQ/L (21-32); CHLORIDE LEVEL 105 MEQ/L (98-107); CREATININE FOR GFR 0.94 MG/DL (0.55-1.30); GLOMERULAR FILTRATION RATE > 60.0 (>45); GLUCOSE, FASTING 105 MG/DL (70-100); POTASSIUM SERUM 4.3 MEQ/L (3.5-5.1); SODIUM LEVEL 141 MEQ/L (136-145)
[2022-05-05 14:00] LABS: VITAMIN B12 LEVEL 809 PG/ML (247-911)
== END ==
LOC: M RAD 11:40 → M LAB 11:40
PROVIDERS: ATTEND Urology

== ENCOUNTER → 2022-05-20 | Outpatient (CLI) | payer MEDICARE, BC, OTHER ==
[~2022-05-20] MED LIST changes: +GASTROGRAFIN SOLUTION 30ML (Q9963) As Ordered ONE; +ISOVUE-370 76% 100ML VIAL As Ordered ONE
== END ==
LOC: M RAD 10:34
PROVIDERS: ATTEND Internal Medicine Medical Oncology
DX: C67.9 Malignant neoplasm of bladder, unspecified (principal)
CPT/HCPCS: 71260; 74177; Q9963; Q9967

== ENCOUNTER → 2022-07-08 | Outpatient (CLI) | payer MEDICARE, BC, OTHER ==
[~2022-07-08] MED LIST changes: -GASTROGRAFIN SOLUTION 30ML (Q9963) As Ordered ONE; -ISOVUE-370 76% 100ML VIAL As Ordered ONE; +LEVO1TAB39 PO; -LEVO500T4 PO
== END ==
LOC: M WHC 10:07
PROVIDERS: ATTEND Internal Medicine
DX: Z12.31 Encounter for screening mammogram for malignant neoplasm of breast (principal)

== ENCOUNTER → 2022-12-03 | Outpatient (CLI) | payer MEDICARE, BC, OTHER ==
[2022-12-03 11:47] LABS: HEMATOCRIT 38.5 % (36.0-47.0); HEMOGLOBIN 12.4 g/dl (12.0-15.5); MEAN CORPUSCULAR HEMOGLOBIN 31.8 pg (27.0-33.0); MEAN CORPUSCULAR HGB CONC 32.2 g/dl (32.0-36.5); MEAN CORPUSCULAR VOLUME 98.7 fl (80.0-96.0); PLATELET COUNT, AUTOMATED 248 10^3/uL (150-450); WHITE BLOOD COUNT 5.6 10^3/uL (4.0-10.0)
[2022-12-03 12:17] LABS: ALBUMIN 3.7 G/DL (3.2-5.2); ALKALINE PHOSPHATASE 102 U/L (46-116); ALT/SGPT < 9 U/L (7.0-40); AST/SGOT 19 U/L (<34); BILIRUBIN,TOTAL 0.4 MG/DL (0.3-1.2); BLOOD UREA NITROGEN 14 MG/DL (9-23); CALCIUM LEVEL 9.5 MG/DL (8.3-10.6); CARBON DIOXIDE LEVEL 28 MMOL/L (20-31); CHLORIDE LEVEL 102 MMOL/L (98-107); CREATININE FOR GFR 0.82 MG/DL (0.55-1.30); GLOMERULAR FILTRATION RATE > 60.0 (>45); GLUCOSE, FASTING 130 MG/DL (74-106); POTASSIUM SERUM 3.8 MMOL/L (3.5-5.1); SODIUM LEVEL 138 MMOL/L (136-145); TOTAL PROTEIN 7.3 G/DL (5.7-8.2)
[2022-12-03 12:19] LABS: VITAMIN B12 LEVEL 699 PG/ML (211-911)
== END ==
LOC: M LAB 11:12
PROVIDERS: ATTEND Urology
DX: C67.0 Malignant neoplasm of trigone of bladder (principal)

== ENCOUNTER → 2022-12-16 | Outpatient (CLI) | payer MEDICARE, BC, OTHER ==
[~2022-12-16] MED LIST changes: +ISOVUE-370 76% 100ML VIAL As Ordered ONE
== END ==
LOC: M RAD 16:14
PROVIDERS: ATTEND Urology
DX: C67.0 Malignant neoplasm of trigone of bladder (principal)
CPT/HCPCS: 71260; 74177; Q9967

== ENCOUNTER → 2023-04-03 | Outpatient (CLI) | payer MEDICARE, BC, OTHER ==
[~2023-04-03] MED LIST changes: -ISOVUE-370 76% 100ML VIAL As Ordered ONE
[2023-04-03 11:06] LABS: HEMOGLOBIN A1c 5.6 % (4.0-6.0)
[2023-04-03 11:14] LABS: ALBUMIN 4.1 G/DL (3.2-5.2); ALKALINE PHOSPHATASE 94 U/L (46-116); ALT/SGPT 9 U/L (7.0-40); AST/SGOT 16 U/L (<34); BILIRUBIN,TOTAL 0.5 MG/DL (0.3-1.2); BLOOD UREA NITROGEN 18 MG/DL (9-23); CALCIUM LEVEL 9.6 MG/DL (8.3-10.6); CARBON DIOXIDE LEVEL 28 MMOL/L (20-31); CHLORIDE LEVEL 105 MMOL/L (98-107); CHOLESTEROL LEVEL 222 MG/DL (<200); CHOLESTEROL RISK RATIO 3.17 (<5); CREATININE FOR GFR 0.91 MG/DL (0.55-1.30); GLOMERULAR FILTRATION RATE > 60.0 (>45); GLUCOSE, FASTING 92 MG/DL (74-106); LDL CHOLESTEROL 120.8 MG/DL (<100); POTASSIUM SERUM 4.1 MMOL/L (3.5-5.1); SODIUM LEVEL 137 MMOL/L (136-145); TOTAL PROTEIN 7.4 G/DL (5.7-8.2); TRIGLYCERIDES LEVEL 156 MG/DL (<150)
== END ==
LOC: M WUC 08:15
PROVIDERS: ATTEND Internal Medicine
DX: R73.01 Impaired fasting glucose (principal); Z86.711 Personal history of pulmonary embolism; F33.0 Major depressive disorder, recurrent, mild

== ENCOUNTER → 2023-06-08 | Outpatient (CLI) | payer MEDICARE, BC, OTHER ==
[2023-06-08 17:09] LABS: HEMATOCRIT 36.1 % (36.0-47.0); HEMOGLOBIN 11.8 g/dl (12.0-15.5); MEAN CORPUSCULAR HEMOGLOBIN 32.7 pg (27.0-33.0); MEAN CORPUSCULAR HGB CONC 32.7 g/dl (32.0-36.5); PLATELET COUNT, AUTOMATED 230 10^3/uL (150-450); RED BLOOD COUNT 3.61 10^6/uL (4.00-5.40); WHITE BLOOD COUNT 4.7 10^3/uL (4.0-10.0)
[2023-06-08 17:29] LABS: BLOOD UREA NITROGEN 16 MG/DL (9-23); CALCIUM LEVEL 8.6 MG/DL (8.3-10.6); CARBON DIOXIDE LEVEL 28 MMOL/L (20-31); CHLORIDE LEVEL 103 MMOL/L (98-107); CREATININE FOR GFR 0.79 MG/DL (0.55-1.30); GLOMERULAR FILTRATION RATE > 60.0 (>45); GLUCOSE, FASTING 117 MG/DL (74-106); POTASSIUM SERUM 3.7 MMOL/L (3.5-5.1); SODIUM LEVEL 140 MMOL/L (136-145)
[2023-06-08 17:34] LABS: VITAMIN B12 LEVEL 632 PG/ML (211-911)
== END ==
LOC: M WUC 11:32
PROVIDERS: ATTEND Nurse Practitioner Family
DX: C67.9 Malignant neoplasm of bladder, unspecified (principal)

== ENCOUNTER → 2023-06-12 | Outpatient (CLI) | payer MEDICARE, BC, OTHER | LOC: M WUC 13:23 | PROVIDERS: ATTEND Urology | DX: C67.9 Malignant neoplasm of bladder, unspecified (principal) ==

== ENCOUNTER → 2023-06-12 | Outpatient (CLI) | payer MEDICARE, BC, OTHER ==
[~2023-06-12] MED LIST changes: +ISOVUE-370 76% 100ML VIAL As Ordered ONE
== END ==
LOC: M RAD 13:56
PROVIDERS: ATTEND Urology
DX: C67.9 Malignant neoplasm of bladder, unspecified (principal)
CPT/HCPCS: 71260; 74177; Q9967

== ENCOUNTER → 2023-09-23 | Outpatient (CLI) | payer MEDICARE, BC, OTHER ==
[~2023-09-23] MED LIST changes: -ISOVUE-370 76% 100ML VIAL As Ordered ONE
== END ==
LOC: M WHC 10:56
PROVIDERS: ATTEND Internal Medicine
DX: Z12.31 Encounter for screening mammogram for malignant neoplasm of breast (principal)

== ENCOUNTER → 2023-10-09 | Outpatient (REF) | payer MEDICARE, BC, OTHER ==
[2023-10-09 15:47] LABS: HEMOGLOBIN 12.2 g/dl (12.0-15.5); MEAN CORPUSCULAR HEMOGLOBIN 31.9 pg (27.0-33.0); MEAN CORPUSCULAR HGB CONC 32.1 g/dl (32.0-36.5); MEAN CORPUSCULAR VOLUME 99.2 fl (80.0-96.0); PLATELET COUNT, AUTOMATED 257 10^3/uL (150-450); RED BLOOD COUNT 3.83 10^6/uL (4.00-5.40); WHITE BLOOD COUNT 5.2 10^3/uL (4.0-10.0)
[2023-10-09 16:12] LABS: ALBUMIN 3.7 G/DL (3.2-5.2); ALKALINE PHOSPHATASE 88 U/L (46-116); ALT/SGPT 10 U/L (7.0-40); AST/SGOT 15 U/L (<34); BILIRUBIN,TOTAL 0.4 MG/DL (0.3-1.2); BLOOD UREA NITROGEN 16 MG/DL (9-23); CALCIUM LEVEL 9.3 MG/DL (8.3-10.6); CARBON DIOXIDE LEVEL 29 MMOL/L (20-31); CHLORIDE LEVEL 102 MMOL/L (98-107); CREATININE FOR GFR 0.83 MG/DL (0.55-1.30); GLOMERULAR FILTRATION RATE > 60.0 (>45); GLUCOSE, FASTING 109 MG/DL (74-106); POTASSIUM SERUM 4.2 MMOL/L (3.5-5.1); SODIUM LEVEL 140 MMOL/L (136-145); TOTAL PROTEIN 6.8 G/DL (5.7-8.2)
== END ==
LOC: M WUC 15:16
PROVIDERS: ATTEND Internal Medicine
DX: R73.01 Impaired fasting glucose (principal); C67.9 Malignant neoplasm of bladder, unspecified

== ENCOUNTER → 2024-04-11 | Outpatient (CLI) | payer MEDICARE, BC ==
[2024-04-11 10:34] LABS: BASO % 0.6 % (0.0-1.0); EOS # 0.2 10^3/uL (0.0-0.5); HEMATOCRIT 38.5 % (36.0-47.0); HEMOGLOBIN 12.7 g/dl (12.0-15.5); LYMPH # 1.7 10^3/uL (1.5-5.0); LYMPH % 31.1 % (24.0-44.0); MONO # 0.5 10^3/uL (0.0-0.8); MONO % 9.1 % (2.0-8.0); PLATELET COUNT, AUTOMATED 249 10^3/uL (150-450); RED BLOOD COUNT 3.97 10^6/uL (4.00-5.40); WHITE BLOOD COUNT 5.3 10^3/uL (4.0-10.0)
[2024-04-11 10:35] LABS: ALBUMIN 3.7 G/DL (3.2-5.2); ALKALINE PHOSPHATASE 92 U/L (46-116); ALT/SGPT 12 U/L (7.0-40); AST/SGOT 17 U/L (<34); BILIRUBIN,TOTAL 0.5 MG/DL (0.3-1.2); BLOOD UREA NITROGEN 14 MG/DL (9-23); CALCIUM LEVEL 9.5 MG/DL (8.3-10.6); CARBON DIOXIDE LEVEL 28 MMOL/L (20-31); CHLORIDE LEVEL 107 MMOL/L (98-107); GLOMERULAR FILTRATION RATE > 60.0 (>39); GLUCOSE, FASTING 101 MG/DL (74-106); POTASSIUM SERUM 4.1 MMOL/L (3.5-5.1); SODIUM LEVEL 143 MMOL/L (136-145); TOTAL PROTEIN 6.9 G/DL (5.7-8.2)
[2024-04-11 10:54] LABS: HEMOGLOBIN A1c 5.2 % (4.0-6.0)
== END ==
LOC: M WUC 08:22
PROVIDERS: ATTEND Internal Medicine
DX: C67.9 Malignant neoplasm of bladder, unspecified (principal); R73.01 Impaired fasting glucose

== ENCOUNTER → 2024-06-08 | Outpatient (CLI) | payer MEDICARE, BC ==
[~2024-06-08] MED LIST changes: +GASTROGRAFIN SOLUTION 30ML As Ordered ONE; +ISOVUE-370 76% 100ML VIAL As Ordered ONE
== END ==
LOC: M RAD 08:01
PROVIDERS: ATTEND Internal Medicine Medical Oncology
DX: C67.9 Malignant neoplasm of bladder, unspecified (principal)
CPT/HCPCS: 71260; 74177; Q9963; Q9967

== ENCOUNTER 2024-06-14 19:58 | Emergency (ER) | payer MEDICARE, BC ==
[~2024-06-14] VITALS: Ht 157.5 cm; Wt 82.8 kg
[~2024-06-14 19:58] MED LIST changes: -GASTROGRAFIN SOLUTION 30ML As Ordered ONE; -ISOVUE-370 76% 100ML VIAL As Ordered ONE
[2024-06-14] MEDS ORDERED: ISOVUE-370 76% 100ML VIAL As Ordered ONE (21:37)
[2024-06-14 21:49] LABS: BASO % 0.3 % (0.0-1.0); EOS # 0.1 10^3/uL (0.0-0.5); EOS % 0.8 % (0.0-3.0); HEMATOCRIT 38.7 % (36.0-47.0); HEMOGLOBIN 12.7 g/dl (12.0-15.5); LYMPH # 1.8 10^3/uL (1.5-5.0); LYMPH % 20.6 % (24.0-44.0); MEAN CORPUSCULAR HEMOGLOBIN 31.8 pg (27.0-33.0); MEAN CORPUSCULAR HGB CONC 32.8 g/dl (32.0-36.5); MONO # 0.7 10^3/uL (0.0-0.8); MONO % 7.9 % (2.0-8.0); NEUTROPHILS # 6.1 10^3/uL (1.5-8.5); NEUTROPHILS % 70.2 % (36.0-66.0); PLATELET COUNT, AUTOMATED 255 10^3/uL (150-450); RED BLOOD COUNT 3.99 10^6/uL (4.00-5.40); WHITE BLOOD COUNT 8.8 10^3/uL (4.0-10.0)
[2024-06-14 22:20] LABS: LIPASE 33 U/L (12-53)
[2024-06-14 22:22] LABS: ALBUMIN 3.9 G/DL (3.2-5.2); ALKALINE PHOSPHATASE 102 U/L (46-116); ALT/SGPT 10 U/L (7.0-40); AST/SGOT 12 U/L (<34); BILIRUBIN,DIRECT < 0.1 MG/DL (<0.4); BILIRUBIN,TOTAL 0.4 MG/DL (0.3-1.2); TOTAL PROTEIN 7.2 G/DL (5.7-8.2)
[2024-06-14] MEDS ORDERED: BACT800T5 PO (23:31)
[2024-06-14 23:48] VITALS: BP 116/67; TEMP 98.3; O2SAT 96
[2024-06-14] MEDS: BACTRIM 160MG/800MG DS TAB PO ONE (23:49)
[2024-06-18] MEDS ORDERED: LEVO1TAB38 PO (08:41)
== END 2024-06-14 23:54 | disposition home or self-care (01) ==
LOC: M ED 19:58
DX: N39.0 Urinary tract infection, site not specified (principal); Z79.810 Long term (current) use of selective estrogen receptor modulators (SERMs); Z79.899 Other long term (current) drug therapy
CPT/HCPCS: 36415; 74177; 80047; 80076; 81001; 83690; 85025; 87088; 87186; 99284; Q9967

== ENCOUNTER → 2024-08-16 | Outpatient (CLI) | payer MEDICARE, BC ==
[~2024-08-16] MED LIST changes: +BACT800T5 PO; +LEVO1TAB38 PO
== END ==
LOC: M WUC 11:44
PROVIDERS: ATTEND Nurse Practitioner Family
DX: C67.9 Malignant neoplasm of bladder, unspecified (principal)

== ENCOUNTER → 2024-09-28 | Outpatient (CLI) | payer MEDICARE, BC | LOC: M WUC 14:52 | PROVIDERS: ATTEND Internal Medicine | DX: M79.601 Pain in right arm (principal); M19.011 Primary osteoarthritis, right shoulder ==

== ENCOUNTER → 2024-10-04 | Outpatient (CLI) | payer MEDICARE, BC ==
[2024-10-04 11:10] LABS: BASO % 0.3 % (0.0-1.0); EOS # 0.1 10^3/uL (0.0-0.5); EOS % 1.1 % (0.0-3.0); HEMATOCRIT 38.9 % (36.0-47.0); HEMOGLOBIN 12.7 g/dl (12.0-15.5); LYMPH # 1.6 10^3/uL (1.5-5.0); LYMPH % 25.8 % (24.0-44.0); MEAN CORPUSCULAR HEMOGLOBIN 31.8 pg (27.0-33.0); MEAN CORPUSCULAR HGB CONC 32.6 g/dl (32.0-36.5); MEAN CORPUSCULAR VOLUME 97.5 fl (80.0-96.0); MONO # 0.5 10^3/uL (0.0-0.8); MONO % 7.9 % (2.0-8.0); NEUTROPHILS # 3.9 10^3/uL (1.5-8.5); NEUTROPHILS % 64.6 % (36.0-66.0); PLATELET COUNT, AUTOMATED 296 10^3/uL (150-450); RED BLOOD COUNT 3.99 10^6/uL (4.00-5.40); WHITE BLOOD COUNT 6.1 10^3/uL (4.0-10.0)
[2024-10-04 11:35] LABS: ALBUMIN 3.9 G/DL (3.2-5.2); ALKALINE PHOSPHATASE 98 U/L (35-104); ALT/SGPT 9 U/L (7.0-40); AST/SGOT 12 U/L (<34); BILIRUBIN,TOTAL 0.5 MG/DL (0.3-1.2); BLOOD UREA NITROGEN 16 MG/DL (9-23); CALCIUM LEVEL 9.9 MG/DL (8.3-10.6); CARBON DIOXIDE LEVEL 30 MMOL/L (20-31); CHLORIDE LEVEL 104 MMOL/L (98-107); CREATININE FOR GFR 0.86 MG/DL (0.55-1.30); GLOMERULAR FILTRATION RATE > 60.0 (>39); GLUCOSE, FASTING 101 MG/DL (74-106); POTASSIUM SERUM 4.1 MMOL/L (3.5-5.1); SODIUM LEVEL 142 MMOL/L (136-145); TOTAL PROTEIN 7.4 G/DL (5.7-8.2)
[2024-10-04 11:36] LABS: HEMOGLOBIN A1c 5.5 % (4.0-6.0)
== END ==
LOC: M WUC 08:05
PROVIDERS: ATTEND Internal Medicine
DX: R73.01 Impaired fasting glucose (principal); C67.9 Malignant neoplasm of bladder, unspecified

== ENCOUNTER → 2024-10-12 | Outpatient (CLI) | payer MEDICARE, BC | LOC: M WHC 10:34 | PROVIDERS: ATTEND Internal Medicine | DX: Z12.31 Encounter for screening mammogram for malignant neoplasm of breast (principal) ==

== ENCOUNTER 2024-10-25 06:45 | Day surgery (SDC) | payer MEDICARE, BC ==
[~2024-10-25] VITALS: Ht 157.5 cm; Wt 81.6 kg
[2024-10-25] MEDS ORDERED: LIDOCAINE 2% 100MG/5ML SDV (FOR ANES.) As Ordered ONE (08:29)
[2024-10-25] MEDS ORDERED: propofoL 200 MG/20 ML VIAL As Ordered ONE (08:29)
[2024-10-25] MEDS ORDERED: LABETALOL 100MG/20ML VIAL As Ordered ONE (08:29)
[2024-10-25 08:42] VITALS: TEMP 97.3
[2024-10-25 08:58] VITALS: BP 119/69; O2SAT 94
== END 2024-10-25 09:02 | disposition home or self-care (01) ==
LOC: M OPP 06:45
PROVIDERS: ATTEND Internal Medicine Gastroenterology
DX: D12.0 Benign neoplasm of cecum (principal); Z86.0100 Personal history of colon polyps, unspecified; Z80.0 Family history of malignant neoplasm of digestive organs; K57.30 Diverticulosis of large intestine without perforation or abscess without bleeding; K64.8 Other hemorrhoids; K59.09 Other constipation; M19.90 Unspecified osteoarthritis, unspecified site; F41.9 Anxiety disorder, unspecified; Z86.711 Personal history of pulmonary embolism; Z85.51 Personal history of malignant neoplasm of bladder; Z92.21 Personal history of antineoplastic chemotherapy; Z79.01 Long term (current) use of anticoagulants; Z79.899 Other long term (current) drug therapy; Z80.42 Family history of malignant neoplasm of prostate
CPT/HCPCS: 45385; 88305; J1920

== ENCOUNTER → 2025-07-24 | Outpatient (CLI) | payer MEDICARE, BC ==
[2025-07-24 12:09] LABS: PLATELET COUNT, AUTOMATED 259 10^3/uL (150-450)
[2025-07-24 12:54] LABS: CALCIUM LEVEL 9.6 MG/DL (8.3-10.6); CARBON DIOXIDE LEVEL 30.0 MMOL/L (20-31); CHLORIDE LEVEL 102.0 MMOL/L (98-107); CREATININE FOR GFR 0.79 MG/DL (0.55-1.30); GLOMERULAR FILTRATION RATE 79.9 (>39); POTASSIUM SERUM 3.6 MMOL/L (3.5-5.1); SODIUM LEVEL 143.0 MMOL/L (136-145)
[2025-07-24 12:56] LABS: VITAMIN B12 LEVEL 1228.0 PG/ML (211-911)
== END ==
LOC: M WUC 08:17
PROVIDERS: ATTEND Nurse Practitioner Family
DX: C67.9 Malignant neoplasm of bladder, unspecified (principal)

== ENCOUNTER → 2025-08-07 | Outpatient (CLI) | payer MEDICARE, BC ==
[~2025-08-07] MED LIST changes: +ISOVUE-370 76% 100 ML VIAL As Ordered ONE
== END ==
LOC: M RAD 07-28 16:51
PROVIDERS: ATTEND Nurse Practitioner Family
DX: C67.9 Malignant neoplasm of bladder, unspecified (principal)
CPT/HCPCS: 71260; 74177; Q9967

== ENCOUNTER → 2025-09-20 | Outpatient (CLI) | payer MEDICARE, BC ==
[~2025-09-20] MED LIST changes: -ISOVUE-370 76% 100 ML VIAL As Ordered ONE
[2025-09-20 14:46] LABS: CREATININE FOR GFR 0.8 MG/DL (0.55-1.30); GLOMERULAR FILTRATION RATE 78.7 (>39)
== END ==
LOC: M WUC 11:44
PROVIDERS: ATTEND Nurse Practitioner Family
DX: C67.9 Malignant neoplasm of bladder, unspecified (principal)

== ENCOUNTER → 2025-09-26 | Outpatient (CLI) | payer MEDICARE, BC ==
[~2025-09-26] MED LIST changes: +GASTROGRAFIN SOLUTION 30 ML ONE; +ISOVUE-370 76% 100 ML VIAL ONE
== END ==
LOC: M PLAIMG 13:25
PROVIDERS: ATTEND Nurse Practitioner Family
DX: C67.9 Malignant neoplasm of bladder, unspecified (principal); I70.0 Atherosclerosis of aorta; K42.9 Umbilical hernia without obstruction or gangrene; M47.815 Spondylosis without myelopathy or radiculopathy, thoracolumbar region; M41.9 Scoliosis, unspecified
CPT/HCPCS: 74177; Q9963; Q9967

== ENCOUNTER → 2025-11-03 | Outpatient (CLI) | payer MEDICARE, BC ==
[~2025-11-03] MED LIST changes: -BACTDSTA PO; -GASTROGRAFIN SOLUTION 30 ML ONE; -ISOVUE-370 76% 100 ML VIAL ONE; +SULF-8 PO
[2025-11-03 13:01] LABS: BASO # 0.0 10^3/uL (0.0-0.2); BASO % 0.5 % (0.0-1.0); EOS # 0.1 10^3/uL (0.0-0.5); EOS % 1.2 % (0.0-3.0); LYMPH # 1.9 10^3/uL (1.5-5.0); LYMPH % 31.4 % (24.0-44.0); MONO # 0.5 10^3/uL (0.0-0.8); MONO % 8.1 % (2.0-8.0); NEUTROPHILS # 3.5 10^3/uL (1.5-8.5); NEUTROPHILS % 58.6 % (36.0-66.0); PLATELET COUNT, AUTOMATED 276 10^3/uL (150-450)
[2025-11-03 13:24] LABS: ALT/SGPT 13.0 U/L (7.0-40); AST/SGOT 22.0 U/L (<34); CALCIUM LEVEL 9.6 MG/DL (8.3-10.6); CARBON DIOXIDE LEVEL 30.0 MMOL/L (20-31); CHLORIDE LEVEL 103.0 MMOL/L (98-107); CREATININE FOR GFR 0.87 MG/DL (0.55-1.30); GLOMERULAR FILTRATION RATE 71.2 (>39); POTASSIUM SERUM 4.0 MMOL/L (3.5-5.1); SODIUM LEVEL 140.0 MMOL/L (136-145)
== END ==
LOC: M WUC 09:30
PROVIDERS: ATTEND Internal Medicine
DX: R73.01 Impaired fasting glucose (principal)

== ENCOUNTER → 2025-11-15 | Outpatient (CLI) | payer MEDICARE, BC | LOC: M WHC 08:38 | PROVIDERS: ATTEND Internal Medicine | DX: Z12.31 Encounter for screening mammogram for malignant neoplasm of breast (principal) ==